=== PATIENT | female | born 1955 | race African-American/Black ===

== ENCOUNTER 2017-04-02 12:46 | Emergency (ER) | payer OTHER ==
[~2017-04-02] VITALS: Ht 157.5 cm; Wt 59.8 kg
[~2017-04-02 12:46] MED LIST: AUGM875T3 PO; CHLO.12%30 SWISH-SPIT; D 50CAP2 PO; EXCETAB PO; FLUT50SP EACH NARE; FLUV20CA3 PO; FURO1TAB62 PO; HYDR-3516 PO; IBUP-232 PO; LIDO1PAD52 TOPICAL
[2017-04-02 12:49] VITALS: BP 149/80; PULSE 78; RESP 16; TEMP 98.5; O2SAT 97
--- NOTE | 2017-04-02 13:17 | PD ---
HPI Chief Complaint: Hip Injury Time Seen by Provider: 13:00 Travel History International Travel<30 days: No Contact w/Intl Traveler<30days: No Traveled to known affect area: No History of Present Illness HPI This patient complains of left hip pain from fall. Duration 1 hour.The patient was seen and examined in the presence of the nurse. Severity is moderate. She has chronic gait problems from neuropathy and polio. She is supposed to be using a cane but wasn't using at the time she fell in her house and landed on tile on her left hip. Did not strike her head. No alleviating factors. Symptoms exacerbated by her gait problems PFSH Past Medical History Hx Anticoagulant Therapy: No Arthritis: Yes (DJD back, bilat knees) Cardiovascular Problems: Yes (HTN, CHOL) High Cholesterol: Yes Diabetes: No Diminished Hearing: No Fibromyalgia: Yes Headaches: Yes Hypertension: Yes Musculoskeletal: Yes (HX POLOIO;DDD) Respiratory: Yes Immunizations Current: Yes ?: Not Menopausal: Yes Past Surgical History Hysterectomy: Yes Social History Alcohol Use: No Tobacco Use: No (2012 STOPPED smoked 1 pack every week) Substance Use: No Allergies-Medications (Allergen,Severity, Reaction): Coded Allergies: No Known Allergies (Verified Allergy, Unknown, 04/02/17) Reported Meds & Prescriptions Reported Meds & Active Scripts Active Fluvastatin (Fluvastatin Sodium) 20 Mg Cap 20 Mg PO HS D3 Maximum Strength (Cholecalciferol) 5,000 Unit Cap 5,000 Units PO DAILY Lidocaine Patch 12 HR (Lidocaine) 5 % Patch 1 Patch TOPICAL DAILY PRN Remove patch after 12 hours Lasix (Furosemide) 20 Mg Tab 20 Mg PO DAILY PRN Fluticasone Nasal [place] 50 Mcg/Act Naspr 100 Mcg EACH NARE BID 50 mcg/spray Chlorhexidine Gluconate (Mouth) Liq (Chlorhexidine Gluconate) 0.12% Soln 15 Ml SWISH-SPIT BID Reported [BP med] 1 Tab PO DAILY Senna-Tabs (Sennosides) 8.6 Mg Tab 8.6 Mg PO DAILY Ibuprofen 600 Mg Tab 600 Mg PO TID Hydrocodone-Acetaminophen 5-325 mg Tab 1 Tab PO BID PRN Review of Systems General / Constitutional: No: Fever Eyes: No: Visual changes HENT: No: Headaches Cardiovascular: No: Chest Pain or Discomfort Respiratory: No: Shortness of Breath Gastrointestinal: No: Abdominal Pain Genitourinary: No: Dysuria Musculoskeletal: Positive: Limited ROM, Pain Skin: No Rash Neurologic: Positive: Ataxia, No: Weakness Psychiatric: No: Depression Endocrine: No: Polydipsia Hematologic/Lymphatic: No: Easy Bruising Physical Exam Narrative GENERAL: Well-nourished, well-developed patient in no apparent distress. SKIN: Focused skin assessment reveals no rash and nodules. Skin is Warm and dry. HEAD: Atraumatic. Normocephalic. EYES: Pupils equal and round. No scleral icterus. No injection or drainage. ENT: No nasal bleeding or discharge. Mucous membranes pink and moist. NECK: Trachea midline. No JVD. CARDIOVASCULAR: Regular rate and rhythm. No murmur appreciated. RESPIRATORY: No accessory muscle use. Clear to auscultation. Breath sounds equal bilaterally. GASTROINTESTINAL: Abdomen soft, non-tender, nondistended. Hepatic and splenic margins not palpable. MUSCULOSKELETAL: No obvious deformities. No clubbing. No cyanosis. No edema. Good range of motion left hip. No open wound or bruising NEUROLOGICAL: Awake and alert. No obvious cranial nerve deficits. Motor grossly within normal limits. Normal speech. PSYCHIATRIC: Appropriate mood and affect; insight and judgment normal. Data Data Last Documented VS Vital Signs Date Time Temp Pulse Resp B/P (MAP) Pulse Ox O2 Delivery O2 Flow Rate FiO2 04/02/17 12:49 98.5 78 16 149/80 (103) 97 Orders Orders Hip, Lat Only W Ap Pelvis (04/02/17 ) MDM Medical Decision Making Medical Screen Exam Complete: Yes Emergency Medical Condition: Yes Medical Record Reviewed: Yes Differential Diagnosis Hip fracture, hip contusion, hip dislocation Narrative Course I have reviewed the patient's electronic medical record. I reviewed her left hip x-ray which is negative I reviewed her pelvis x-ray which is negative I recommended walker use and daughter says she will get one. Has a contusion but stable for outpatient follow-up Diagnosis Primary Impression: Contusion of left hip Qualified Codes: S70.02XA - Contusion of left hip, initial encounter Additional Instructions: The patient was advised to follow up with their physician and return if they worsen. Use walker Med/Other Pt SpecificInfo: Other Disposition: 01 DISCHARGE HOME Condition: Stable Seng Li MD Apr 02, 2017 13:17
[2017-04-02] MEDS ORDERED: SENN8.6T36 PO (13:46)
[2017-04-02] MEDS ORDERED: BP med PO (13:46)
--- NOTE | 2017-04-02 14:04 | RADRPT ---
EXAM DATE/TIME: 04/02/2017 13:49 [facility] COMPARISON: No previous studies available for comparison. INDICATIONS : Left hip pain after falling today. MEDICAL HISTORY : Hypertension. SURGICAL HISTORY : None. ENCOUNTER: Initial ACUITY: 1 day PAIN SCORE: 10/10 LOCATION: Left head of femur. FINDINGS: A lateral view of the left hip with AP pelvis was obtained. No definite fractures, dislocations, lyt ic or sclerotic lesions are seen. The joint space is well maintained. The bones appear osteopenic. CONCLUSION: No acute disease. Ruben Cueva MD on April 02, 2017 at 14:01 Board Certified Radiologist. This report was verified electronically.
== END 2017-04-02 14:54 | disposition home or self-care (01) ==
LOC: PHED 12:46
DX: S70.02XA Contusion of left hip, initial encounter (principal); R27.0 Ataxia, unspecified; I10 Essential (primary) hypertension; A80.9 Acute poliomyelitis, unspecified; G62.9 Polyneuropathy, unspecified; E78.00 Pure hypercholesterolemia, unspecified; Z87.39 Personal history of other diseases of the musculoskeletal system and connective tissue; W18.39XA Other fall on same level, initial encounter; Y92.009 Unspecified place in unspecified non-institutional (private) residence as the place of occurrence of the external cause
CPT/HCPCS: 73501; 99283

== ENCOUNTER 2017-05-10 15:22 | Inpatient (IN) | payer OTHER, MEDICAID, MEDICARE ==
[~2017-05-10] VITALS: Ht 157.5 cm; Wt 57.2 kg
[2017-05-10] VITALS (10 sets, daily range): BP systolic 81–164; BP diastolic 57–88; PULSE 66–109; RESP 16–20; TEMP 97.8–98.8; O2SAT 97–100
[~2017-05-10 15:22] MED LIST changes: -AUGM875T3 PO; +BP med PO; -EXCETAB PO; +SENN8.6T36 PO
[2017-05-10] MEDS ORDERED: SODIUM CHLORID 0.9% 500 ML INJ 500 ML IV ONE ×2 (15:45→17:15)
--- NOTE | 2017-05-10 15:57 | PD ---
HPI Chief Complaint: low blood pressure Time Seen by Provider: 15:32 Travel History International Travel<30 days: No Contact w/Intl Traveler<30days: No Traveled to known affect area: No History of Present Illness HPI This 61-year-old female says she had low blood pressure at home today. She has a history of hypertension and is on lisinopril. She says she also takes some eyedrops which tends to lower her blood pressure. She says that today she was feeling lightheaded and short of breath. She checked her blood pressure at home and was in the 70s. She does not have any chest pain. She has not had any fever or chills. She feels a bit better now. She has a history of occipital neuralgia and gets injections in the back of her head periodically. He would not neurologist gave her a new medication 2 days ago which she says made her very jittery and which she would not take anymore. They've called the pharmacy and the medicine was Topamax She believes that that is what has triggered her illness. She denies any history of heart disease. She is having her usual headache now PFSH Past Medical History Hx Anticoagulant Therapy: No Arthritis: Yes (DJD back, bilat knees) Cardiovascular Problems: Yes (HTN, CHOL) High Cholesterol: Yes Diabetes: No Diminished Hearing: No Fibromyalgia: Yes Headaches: Yes Hypertension: Yes Musculoskeletal: Yes (HX POLOIO;DDD) Respiratory: Yes Immunizations Current: Yes Menopausal: Yes Past Surgical History Hysterectomy: Yes Social History Alcohol Use: No Tobacco Use: No (2012 STOPPED smoked 1 pack every week) Substance Use: No Allergies-Medications (Allergen,Severity, Reaction): Coded Allergies: No Known Allergies (Verified Allergy, Unknown, 05/10/17) Reported Meds & Prescriptions Reported Meds & Active Scripts Active Fluvastatin (Fluvastatin Sodium) 20 Mg Cap 20 Mg PO HS D3 Maximum Strength (Cholecalciferol) 5,000 Unit Cap 5,000 Units PO DAILY Lidocaine Patch 12 HR (Lidocaine) 5 % Patch 1 Patch TOPICAL DAILY PRN Remove patch after 12 hours Lasix (Furosemide) 20 Mg Tab 20 Mg PO DAILY PRN Fluticasone Nasal [place] 50 Mcg/Act Naspr 100 Mcg EACH NARE BID 50 mcg/spray Chlorhexidine Gluconate (Mouth) Liq (Chlorhexidine Gluconate) 0.12% Soln 15 Ml SWISH-SPIT BID Reported [BP med] 1 Tab PO DAILY Senna-Tabs (Sennosides) 8.6 Mg Tab 8.6 Mg PO DAILY Ibuprofen 600 Mg Tab 600 Mg PO TID Hydrocodone-Acetaminophen 5-325 mg Tab 1 Tab PO BID PRN Review of Systems General / Constitutional: No: Fever, Chills Eyes: No: Diploplia HENT: Positive: Headaches Cardiovascular: No: Chest Pain or Discomfort, Palpitations Respiratory: No: Cough, Shortness of Breath Gastrointestinal: No: Nausea, Vomiting Genitourinary: No: Urgency, Frequency Musculoskeletal: No: Myalgias Skin: No Rash Neurologic: Positive: Weakness Endocrine: No: Heat Intolerance, Cold Intolerance Hematologic/Lymphatic: No: Easy Bruising Physical Exam Narrative GENERAL: Well-developed female SKIN: Focused skin assessment warm/dry. HEAD: Atraumatic. Normocephalic. EYES: Pupils equal and round. No scleral icterus. No injection or drainage. ENT: No nasal bleeding or discharge. Mucous membranes pink and moist. NECK: Trachea midline. No JVD. CARDIOVASCULAR: Regular rate and rhythm. No murmur appreciated. RESPIRATORY: No accessory muscle use. Clear to auscultation. Breath sounds equal bilaterally. GASTROINTESTINAL: Abdomen soft, non-tender, nondistended. Hepatic and splenic margins not palpable. MUSCULOSKELETAL: No obvious deformities. No clubbing. No cyanosis. No edema. NEUROLOGICAL: Awake and alert. No obvious cranial nerve deficits. Motor grossly within normal limits. Normal speech. PSYCHIATRIC: Appropriate mood and affect; insight and judgment normal. Data Data Last Documented VS Vital Signs Date Time Temp Pulse Resp B/P (MAP) Pulse Ox O2 Delivery O2 Flow Rate FiO2 05/10/17 15:25 97.8 109 16 137/78 (97) 97 Orders Orders Electrocardiogram (05/10/17 15:45) Complete Blood Count With Diff (05/10/17 15:45) Comprehensive Metabolic Panel (05/10/17 15:45) Troponin I (05/10/17 15:45) Urinalysis - C+S If Indicated (05/10/17 15:45) D-Dimer (05/10/17 15:45) Magnesium (Mg) (05/10/17 15:45) Chest, Single Ap (05/10/17 15:45) Orthostatic Vital Signs (05/10/17 15:45) Sodium Chlorid 0.9% 500 Ml Inj (Ns 500 M (05/10/17 15:45) MDM Medical Decision Making Medical Screen Exam Complete: Yes Emergency Medical Condition: Yes Medical Record Reviewed: Yes Differential Diagnosis Differential includes dehydration, excessive medication ingestion, hypertension Narrative Course Pressure at this time is stable. She will be given some fluids and lab work is pending. Diagnosis Primary Impression: Hx of hypotension Greg Mendoza MD May 10, 2017 15:57
[2017-05-10 16:18] LABS: AUTOMATED NEUTROPHIL # 4.6 TH/MM3 (1.8-7.7); BASOPHIL # 0.1 TH/MM3 (0-0.2); BASOPHIL % 1.2 % (0.0-2.0); EOSINOPHIL # 0.1 TH/MM3 (0-0.4); EOSINOPHIL % 0.8 % (0.0-4.0); HEMATOCRIT 37.3 % (35.0-46.0); HEMOGLOBIN 11.9 GM/DL (11.6-15.3); LYMPH % 28.4 % (9.0-44.0); MEAN CELL VOLUME 91.3 FL (80.0-100.0); MEAN CORPUSCULAR HEMOGLOBIN 29.2 PG (27.0-34.0); MEAN PLATELET VOLUME 8.3 FL (7.0-11.0); MONOCYTE # 0.4 TH/MM3 (0-0.9); NEUT % 64.6 % (16.0-70.0); PLATELET COUNT 231 TH/MM3 (150-450); RED BLOOD COUNT 4.08 MIL/MM3 (4.00-5.30); RED CELL DISTRIBUTION WIDTH 13.7 % (11.6-17.2); WHITE BLOOD COUNT 7.2 TH/MM3 (4.0-11.0)
[2017-05-10 16:25] LABS: CHLORIDE 107 MEQ/L (98-107); SODIUM (NA) 138 MEQ/L (136-145)
[2017-05-10 16:28] LABS: ALBUMIN 3.7 GM/DL (3.4-5.0); CALCIUM 9.2 MG/DL (8.5-10.1); GLUCOSE,RANDOM 117 MG/DL (74-106)
[2017-05-10 16:29] LABS: BLOOD UREA NITROGEN 18 MG/DL (7-18)
[2017-05-10 16:31] LABS: ALT (GPT) 15 U/L (10-53); AST (GOT) 13 U/L (15-37)
[2017-05-10 16:32] LABS: GLOMERULAR FILTRATION RATE 68 ML/MIN (>89)
[2017-05-10] MEDS ORDERED: DORZ2SOL EACH EYE (16:32)
[2017-05-10 16:33] LABS: TOTAL BILIRUBIN ADULT 0.3 MG/DL (0.2-1.0)
[2017-05-10 16:34] LABS: ALKALINE PHOSPHATASE 70 U/L (45-117)
[2017-05-10 16:37] LABS: TROPONIN I LESS THAN 0.02 NG/ML (0.02-0.05)
--- NOTE | 2017-05-10 17:07 | PD ---
Data Data Last Documented VS Vital Signs Date Time Temp Pulse Resp B/P (MAP) Pulse Ox O2 Delivery O2 Flow Rate FiO2 05/10/17 17:39 66 16 119/76 (90) 100 Room Air 05/10/17 15:25 97.8 Orders Orders Electrocardiogram (05/10/17 15:45) Complete Blood Count With Diff (05/10/17 15:45) Comprehensive Metabolic Panel (05/10/17 15:45) Troponin I (05/10/17 15:45) Urinalysis - C+S If Indicated (05/10/17 15:45) D-Dimer (05/10/17 15:45) Magnesium (Mg) (05/10/17 15:45) Chest, Single Ap (05/10/17 15:45) Orthostatic Vital Signs (05/10/17 15:45) Sodium Chlorid 0.9% 500 Ml Inj (Ns 500 M (05/10/17 15:45) Ct Pulmonary Angiogram (05/10/17 17:04) Sodium Chlorid 0.9% 500 Ml Inj (Ns 500 M (05/10/17 17:15) Urine Culture (05/10/17 17:20) Ceftriaxone Inj (Rocephin Inj) (05/10/17 18:00) Iohexol 350 Inj (Omnipaque 350 Inj) (05/10/17 18:02) Heparin Inj (Heparin Inj) (05/10/17 18:32) Heparin Inj (Heparin Inj) (05/11/17 00:45) Heparin Inj (Heparin Inj) (05/11/17 00:45) Act Partial Throm Time (Ptt) (05/10/17 18:32) Prothrombin Time / Inr (Pt) (05/10/17 18:32) Cbc No Diff, Includes Plts (05/10/17 18:32) Cbc No Diff, Includes Plts (05/13/17 06:00) Act Partial Throm Time (Ptt) (05/11/17 01:32) Occult Blood (Hemoccult) Stool (05/10/17 18:32) Admit To Inpatient (05/10/17 ) Vital Signs (Adult) JUVENAL.Q4H (05/10/17 18:32) Activity Oob With Assistance (05/10/17 18:32) Starting Sheet Tank Operator / Telemetry JUVENAL.Q8H (05/10/17 18:32) Resp Oxygen Fidencio C Titrat 1-4 L (05/10/17 ) Inpatient Certification (05/10/17 ) Admit Order (Ed Use Only) (05/10/17 18:34) Labs Laboratory Tests Test 05/10/17 16:09 05/10/17 17:20 White Blood Count 7.2 TH/MM3 Red Blood Count 4.08 MIL/MM3 Hemoglobin 11.9 GM/DL Hematocrit 37.3 % Mean Corpuscular Volume 91.3 FL Mean Corpuscular Hemoglobin 29.2 PG Mean Corpuscular Hemoglobin Concent 32.0 % Red Cell Distribution Width 13.7 % Platelet Count 231 TH/MM3 Mean Platelet Volume 8.3 FL Neutrophils (%) (Auto) 64.6 % Lymphocytes (%) (Auto) 28.4 % Monocytes (%) (Auto) 5.0 % Eosinophils (%) (Auto) 0.8 % Basophils (%) (Auto) 1.2 % Neutrophils # (Auto) 4.6 TH/MM3 Lymphocytes # (Auto) 2.0 TH/MM3 Monocytes # (Auto) 0.4 TH/MM3 Eosinophils # (Auto) 0.1 TH/MM3 Basophils # (Auto) 0.1 TH/MM3 CBC Comment DIFF FINAL Differential Comment D-Dimer Quantitative (PE/DVT) 10.83 MG/L FEU Blood Urea Nitrogen 18 MG/DL Creatinine 1.00 MG/DL Random Glucose 117 MG/DL Total Protein 7.0 GM/DL Albumin 3.7 GM/DL Calcium Level 9.2 MG/DL Magnesium Level 2.0 MG/DL Alkaline Phosphatase 70 U/L Aspartate Amino Transf (AST/SGOT) 13 U/L Alanine Aminotransferase (ALT/SGPT) 15 U/L Total Bilirubin 0.3 MG/DL Sodium Level 138 MEQ/L Potassium Level 3.5 MEQ/L Chloride Level 107 MEQ/L Carbon Dioxide Level 25.0 MEQ/L Anion Gap 6 MEQ/L Estimat Glomerular Filtration Rate 68 ML/MIN Troponin I LESS THAN 0.02 NG/ML Urine Collection Type CLEAN CATCH Urine Color YELLOW Urine Turbidity CLOUDY Urine pH 6.0 Urine Specific [place] 1.022 Urine Protein NEG mg/dL Urine Glucose (UA) NEG mg/dL Urine Ketones NEG mg/dL Urine Occult Blood NEG Urine Nitrite NEG Urine Bilirubin NEG Urine Leukocyte Esterase NEG Urine Squamous Epithelial Cells 6-8 /hpf Urine Bacteria MANY /hpf Urine Hyaline Casts 0-2 /lpf Microscopic Urinalysis Comment CULTURE INDICATED MDM Supervised Visit with BAUDILIO: No Narrative Course The patient was initially evaluated by the previous provider and sent out to me at the beginning of my shift pending labs and disposition. See his note for further details. Briefly this is a 61-year-old female with history of hypertension here for evaluation of an episode of lightheadedness and when she checked her blood pressure at home it was 70 systolic. Upon arrival to the emergency department she is normotensive, however she does have orthostatic hypotension. On my assessment the patient is resting comfortably. She denies any physical complaints. No chest pain or dyspnea. No abdominal pain. No headache. No paresthesias or motor deficits. No history of DVT or PE. CBC is unremarkable. CMP is unremarkable. Cardiac enzymes are negative. D-dimer is 10.83. Chest x-ray: Because of elevated d-dimer, CT pulmonary angiogram ordered to rule out PE. CT pulmonary angiogram: CONCLUSION: Bilateral large pulmonary emboli, lower lobe predominant. Patient was made aware of all findings per she is resting comfortably and remains hemodynamically stable. She will be started on heparin drip after heparin bolus. Case discussed with hospitalist Dr. Crowder who prefers that the patient be admitted to the main hospital ICU under the hospitalist service. The patient was made aware of this plan. Diagnosis Primary Impression: Pulmonary embolism Qualified Codes: I26.99 - Other pulmonary embolism without acute cor pulmonale Admitting Information Admitting Physician Requests: Admit Sammy Zarate MD May 10, 2017 17:07
--- NOTE | 2017-05-10 17:26 | RADRPT ---
EXAM DATE/TIME: 05/10/2017 16:04 [facility] COMPARISON: CHEST SINGLE AP, January 08, 2015, 16:25. INDICATIONS : Shortness of breath for two days, MEDICAL HISTORY : Hypertension. Smoker. SURGICAL HISTORY : None. ENCOUNTER: Initial ACUITY: 2 days PAIN SCORE: 0/10 LOCATION: Bilateral chest FINDINGS: A single view of the chest demonstrates the lungs to be symmetrically hyperinflated with no acute inf iltrate. Heart size is normal. Dextroscoliosis of the dorsal spine. Osseous structures are intact. CONCLUSION: Hyperinflation with no acute infiltrate. Beto Zuñiga MD on May 10, 2017 at 17:13 Board Certified Radiologist. This report was verified electronically.
[2017-05-10 17:44] LABS: BILIRUBIN, URINE NEG (NEG); BLOOD, URINE NEG (NEG); GLUCOSE,URINE NEG (NEG); KETONE, URINE NEG (NEG); NITRITE,URINE NEG (NEG); URINE LEUKOCYTE ESTERASE NEG (NEG)
[2017-05-10 17:46] LABS: URINE COLOR YELLOW (YELLW/STRAW)
[2017-05-10 17:51] LABS: BACTERIA, URINE MANY /hpf; HYALINE CAST, URINE 0-2 /lpf (RARE)
[2017-05-10] MEDS ORDERED: cefTRIAXone INJ 1,000 MG in SODIUM CHLORIDE 0.9% INJ 100 ML IV ONE (18:00)
[2017-05-10] MEDS ORDERED: IOHEXOL 350 MG/ML 10 ML VIAL (for RAD DIAG) IVCONTRAST ONE (18:02)
--- NOTE | 2017-05-10 18:08 | RADRPT ---
EXAM DATE/TIME: 05/10/2017 17:52 [facility] COMPARISON: No previous studies available for comparison. INDICATIONS : Low blood pressure. Elevated D-dimer = 10.83 IV CONTRAST: 75 cc Omnipaque 350 (iohexol) IV RADIATION DOSE: 7.98 CTDIvol (mGy) MEDICAL HISTORY : Polio. SURGICAL HISTORY : Hysterectomy. ENCOUNTER: Initial ACUITY: 1 day PAIN SCALE: 0/10 LOCATION: chest TECHNIQUE: Volumetric scanning of the chest was performed using a pulmonary embolism protocol MIP images were re constructed. Using automated exposure control and adjustment of the mA and/or kV according to patien t size, radiation dose was kept as low as reasonably achievable to obtain optimal diagnostic quality images. DICOM format image data is available electronically for review and comparison. Follow-up recommendations for detected pulmonary nodules are based at a minimum on nodule size and pa tient risk factors according to Fleischner Society Guidelines. FINDINGS: PULMONARY ARTERIES: Large pulmonary emboli are seen of both lower lobes. Small pulmonary embolus of the right upper lobe. Right middle lobe and left upper lobe are uninvolved. LUNGS: There is no consolidation or pneumothorax . No concerning pulmonary nodule is visualized. PLEURAE: There is no pleural thickening or pleural effusion. MEDIASTINUM: There is good visualization of the great vessels of the middle mediastinum. No evidence of mediastin al or hilar adenopathy/mass. MUSCULOSKELETAL: Within normal limits for patient age. MISCELLANEOUS: The visualized upper abdominal organs demonstrate no acute abnormality. CONCLUSION: Bilateral large pulmonary emboli, lower lobe predominant. Ruben Schultz MD on May 10, 2017 at 18:04 Board Certified Radiologist. This report was verified electronically.
--- NOTE | 2017-05-10 18:31 | HHI.HP ---
HPI Service [facility] Primary Care Physician Paco Iyer MD Admission Diagnosis Diagnoses: Chief Complaint: lightheaded Travel History International Travel<30 Days: No Contact w/Intl Traveler <30 Da: No Traveled to Known Affected Are: No History of Present Illness 61-year-old black female being admitted for multiple pulmonary emboli. Patient was in her usual state of health until about 2 nights ago when she began experiencing some lightheadedness. She thought this was attributes to her taking her one-time dose of Topamax that night for her occipital neuralgia. However her lightheadedness persisted throughout the next morning and all day yesterday and today. She checked her blood pressure at home and noted that the systolic was in the 70s and thus decided come to emergency room. She did have some transient orthostatic low blood pressures in the 80s systolic but otherwise would return to over 100. D-dimer was significantly elevated, CT pulmonary angiogram showed bilateral pulmonary emboli in both lower lobes as well as a third embolus in the right upper lobe. Patient reports that she has been lying in bed for the last 2 days due to her lightheadedness and has not moved around much. States that she has intermittent occasional lower extremity edema that responds well to Lasix. Patient's past medical history includes having polio as a child and is having residual weakness ever since. She also has chronic low back pain secondary to an accident at work. Uses a cane to walk at baseline. She says she stopped smoking 6 years ago and had only smoked for a period of about 5-6 years. family history includes that her brother had lung cancer. Review of Systems Except as stated in HPI: all other systems reviewed are Neg Past Family Social History Past Medical History occipital neuralgia polio unsteady gait Allergies: Coded Allergies: No Known Allergies (Verified Allergy, Unknown, 05/10/17) Physical Exam Vital Signs Vital Signs Date Time Temp Pulse Resp B/P (MAP) Pulse Ox O2 Delivery O2 Flow Rate FiO2 05/10/17 17:39 66 16 119/76 (90) 100 Room Air 05/10/17 17:13 78 16 100/60 (73) 99 Room Air 05/10/17 16:45 72 16 102/71 (81) 100 Room Air 05/10/17 16:20 72 18 101/68 (79) 85 18 98/70 (79) 116 18 81/57 (65) 05/10/17 15:50 99 05/10/17 15:25 97.8 109 16 137/78 (97) 97 Physical Exam VS: afebrile GENERAL: NAD, awake, lying in bed SKIN: Warm and dry. EYES: No scleral icterus. No injection or drainage. ENT: No nasal bleeding or discharge. Mucous membranes pink and moist. CARDIOVASCULAR: Regular rate and rhythm. no murmurs RESPIRATORY: No accessory muscle use. Clear to auscultation. Breath sounds equal bilaterally. GASTROINTESTINAL: Abdomen soft, non-tender, nondistended. Extremities: No clubbing, cyanosis, or edema. No obvious deformities. MUSCULOSKELETAL: decreased lower extremity BL muscle bulk and tone for age and habitus NEUROLOGICAL: Awake and alert. No obvious cranial nerve deficits. No facial droop nor slurred speech noted. PSYCHIATRIC: Appropriate mood and affect; insight and judgment normal. Laboratory Laboratory Tests Test 05/10/17 16:09 05/10/17 17:20 White Blood Count 7.2 Red Blood Count 4.08 Hemoglobin 11.9 Hematocrit 37.3 Mean Corpuscular Volume 91.3 Mean Corpuscular Hemoglobin 29.2 Mean Corpuscular Hemoglobin Concent 32.0 Red Cell Distribution Width 13.7 Platelet Count 231 Mean Platelet Volume 8.3 Neutrophils (%) (Auto) 64.6 Lymphocytes (%) (Auto) 28.4 Monocytes (%) (Auto) 5.0 Eosinophils (%) (Auto) 0.8 Basophils (%) (Auto) 1.2 Neutrophils # (Auto) 4.6 Lymphocytes # (Auto) 2.0 Monocytes # (Auto) 0.4 Eosinophils # (Auto) 0.1 Basophils # (Auto) 0.1 CBC Comment DIFF FINAL Differential Comment D-Dimer Quantitative (PE/DVT) 10.83 Blood Urea Nitrogen 18 Creatinine 1.00 Random Glucose 117 Total Protein 7.0 Albumin 3.7 Calcium Level 9.2 Magnesium Level 2.0 Alkaline Phosphatase 70 Aspartate Amino Transf (AST/SGOT) 13 Alanine Aminotransferase (ALT/SGPT) 15 Total Bilirubin 0.3 Sodium Level 138 Potassium Level 3.5 Chloride Level 107 Carbon Dioxide Level 25.0 Anion Gap 6 Estimat Glomerular Filtration Rate 68 Troponin I LESS THAN 0.02 Urine Collection Type CLEAN CATCH Urine Color YELLOW Urine Turbidity CLOUDY Urine pH 6.0 Urine Specific [place] 1.022 Urine Protein NEG Urine Glucose (UA) NEG Urine Ketones NEG Urine Occult Blood NEG Urine Nitrite NEG Urine Bilirubin NEG Urine Leukocyte Esterase NEG Urine Squamous Epithelial Cells 6-8 Urine Bacteria MANY Urine Hyaline Casts 0-2 Microscopic Urinalysis Comment CULTURE INDICATED Date/Time Source Procedure Growth Status 05/10/17 17:20 Urine Clean Catch Urine Culture Pending Received Result Diagram: 05/10/17 1609 05/10/17 [address] Angiography 05/10/17 1704 Signed Impressions: Service Date/Time: May 17:52 - CONCLUSION: Bilateral large pulmonary emboli, lower lobe predominant. Ruben Schultz MD Chest X-Ray 05/10/17 1545 Signed Impressions: Service Date/Time: May 16:04 - CONCLUSION: Hyperinflation with no acute infiltrate. Beto Zuñiga MD Caprini VTE Risk Assessment Caprini VTE Risk Assessment: Mod/High Risk (score >= 2) Caprini Risk Assessment Model Point Value = 1 Point Value = 2 Point Value = 3 Point Value = 5 Age 41-60 Minor surgery BMI > 25 kg/m2 Swollen legs Varicose veins or History of unexplained or recurrent spontaneous Oral contraceptives or hormone replacement Sepsis (< 1 month) Serious lung disease, including pneumonia (< 1 month) Abnormal pulmonary function Acute myocardial infarction Congestive heart failure (< 1 month) History of inflammatory bowel disease Medical patient at bed rest Age 61-74 Arthroscopic surgery Major open surgery (> 45 min) Laparoscopic surgery (> 45 min) Malignancy Confined to bed (> 72 hours) Immobilizing plaster cast Central venous access Age >= 75 History of VTE Family history of VTE Factor V Leiden Prothrombin [id number] Lupus anticoagulant Anticardiolipin antibodies Elevated serum homocysteine Heparin-induced thrombocytopenia Other congenital or acquired thrombophilia Stroke (< 1 month) Elective arthroplasty Hip, pelvis, or leg fracture Acute spinal cord injury (< 1 month) Prophylaxis Regimen Total Risk Factor Score Risk Level Prophylaxis Regimen 0-1 Low Early ambulation 2 Moderate Order ONE of the following: *Sequential Compression Device (SCD) *Heparin 5000 units SQ BID 3-4 Higher Order ONE of the following medications: *Heparin 5000 units SQ TID *Enoxaparin/Lovenox 40 mg SQ daily (WT < 150 kg, CrCl > 30 mL/min) *Enoxaparin/Lovenox 30 mg SQ daily (WT < 150 kg, CrCl > 10-29 mL/min) *Enoxaparin/Lovenox 30 mg SQ BID (WT < 150 kg, CrCl > 30 mL/min) AND/OR *Sequential Compression Device (SCD) 5 or more Highest Order ONE of the following medications: *Heparin 5000 units SQ TID (Preferred with Epidurals) *Enoxaparin/Lovenox 40 mg SQ daily (WT < 150 kg, CrCl > 30 mL/min) *Enoxaparin/Lovenox 30 mg SQ daily (WT < 150 kg, CrCl > 10-29 mL/min) *Enoxaparin/Lovenox 30 mg SQ BID (WT < 150 kg, CrCl > 30 mL/min) AND *Sequential Compression Device (SCD) Assessment and Plan Assessment and Plan 61-year-old white female being admitted to the intensive care unit for bilateral pulmonary emboli with borderline blood pressures. - [address] on [address] angiogram, continue heparin drip protocol, discussed with emergency room doctor to admit to 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 - Etiology right now includes prolonged bedrest at home, CT angiogram shows no commentary regarding pulmonary masses Transient hypotension - Multifactorial but of most concern are the pulmonary emboli; normal saline bolus followed by IV fluids, holding home blood pressure medications - Ordering echocardiogram for a.m. - No signs of sepsis at this time. Monitor intake and output. No need for abx, UA is contaminated. Physician Certification 2 Midnight Certification Type: Admission for Inpatient Services Order for Inpatient Services The services are ordered in accordance with Medicare regulations or non- Medicare payer requirements, as applicable. In the case of services not specified as inpatient-only, they are appropriately provided as inpatient services in accordance with the 2-midnight benchmark. Estimated LOS (days): 2 2 days is the estimated time the patient will need to remain in the hospital, assuming treatment plan goals are met and no additional complications. Post-Hospital Plan: Home Mika Crowder MD May 10, 2017 18:31
[2017-05-10] MEDS ORDERED: HEPARIN - 10,000 UNITS/ML IV ADDITIVE IV PUSH STA (18:32)
[2017-05-10] MEDS ORDERED: FUROSEMIDE 20 MG TAB PO PRN (19:00)
[2017-05-10 19:02] LABS: PROTHROMBIN TIME - PATIENT 10.5 SEC (9.8-11.6)
[2017-05-10] MEDS ORDERED: HEPARIN SODIUM - IV 10,000 UNITS/10 ML VIAL IV STA (19:29)
[2017-05-10] MEDS: HEPARIN-D5W 25,000 U/250 ML 250 ML IV PRN (19:47)
[2017-05-10] MEDS ORDERED: CHLORHEXIDINE GLUCONATE 2 % 1 PACK (2 CLOTHS)(extra cloths) TOPICAL PRN (22:30)
[2017-05-10] MEDS: CHLORHEXIDINE GLUCONATE 2 % 1 PACK (2 CLOTHS)(taper/protocol) TOPICAL SCH (22:51)
[2017-05-10] MEDS: PRAVASTATIN SOD 10 MG TAB PO SCH (22:51)
[2017-05-11] VITALS (13 sets, daily range): BP systolic 112–149; BP diastolic 67–84; PULSE 60–81; RESP 13–16; TEMP 96.7–98.7; O2SAT 96–100
[2017-05-11] MEDS ORDERED: HEPARIN SODIUM - IV 10,000 UNITS/10 ML VIAL IV PUSH PRN (00:45)
[2017-05-11] MEDS ORDERED: HEPARIN - 10,000 UNITS/ML IV ADDITIVE IV PUSH PRN (00:45)
[2017-05-11] MEDS: DORZOLAMIDE 2% OPTH SOLN 200 DROP/10 ML BTLO EACH EYE SCH (09:00)
[2017-05-11] MEDS: CHOLECALCIFEROL (VIT D3) 5000 UNIT CAP PO SCH (09:36)
--- NOTE | 2017-05-11 14:18 | HHI.PR ---
Subjective Remarks Patient seen this morning around 9 AM. Reports generalized fatigue. She is not sure she can go home today. She denies any chest pain. She is requesting Tylenol for her chronic headaches. Objective Vital Signs Date Time Temp Pulse Resp B/P (MAP) Pulse Ox O2 Delivery O2 Flow Rate FiO2 05/11/17 12:00 96.7 66 16 129/81 (97) 96 05/11/17 10:00 70 05/11/17 08:00 65 05/11/17 08:00 98.7 73 16 140/72 (94) 100 05/11/17 07:59 100 05/11/17 07:00 77 05/11/17 06:00 65 05/11/17 04:00 63 05/11/17 04:00 98.5 63 13 126/75 (92) 100 05/11/17 02:00 64 05/11/17 00:00 98.6 60 13 149/84 (105) 100 05/11/17 00:00 60 05/10/17 23:00 66 19 153/66 (95) 100 05/10/17 23:00 66 05/10/17 22:40 100 21 05/10/17 22:23 98.8 74 20 164/84 (110) 100 05/10/17 21:26 76 18 144/88 (106) 100 Room Air 05/10/17 21:26 76 18 144/88 (106) 98 05/10/17 19:07 75 16 161/86 (111) 99 Room Air 05/10/17 17:39 66 16 119/76 (90) 100 Room Air 05/10/17 17:13 78 16 100/60 (73) 99 Room Air 05/10/17 16:45 72 16 102/71 (81) 100 Room Air 05/10/17 16:20 72 18 101/68 (79) 85 18 98/70 (79) 116 18 81/57 (65) 05/10/17 15:50 99 05/10/17 15:25 97.8 109 16 137/78 (97) 97 I/O 05/10/17 05/10/17 05/10/17 05/11/17 05/11/17 05/11/17 07:00 15:00 23:00 07:00 15:00 23:00 Intake Total 1100 ml 0 ml Balance 1100 ml 0 ml Intake Oral 0 ml IV Total 1100 ml # Voids 4 # Bowel Movements 0 Result Diagram: 05/10/17 1609 05/10/17 1609 Objective Remarks GENERAL: Patient sitting up in bed. Appears fatigued. SKIN: Warm and dry. HEAD: Normocephalic. EYES: No scleral icterus. No injection or drainage. NECK: Supple, trachea midline. No JVD. CARDIOVASCULAR: Regular rate and rhythm without murmurs, gallops, or rubs. RESPIRATORY: Breath sounds equal bilaterally. No accessory muscle use. GASTROINTESTINAL: Abdomen soft, non-tender, nondistended. MUSCULOSKELETAL: No cyanosis, or edema. BACK: Nontender without obvious deformity. No CVA tenderness. A/P Assessment and Plan 61-year-old white female being admitted to the intensive care unit for bilateral pulmonary emboli with borderline blood pressures. 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 - Etiology right now includes prolonged bedrest at home, CT angiogram shows no commentary regarding pulmonary masses = Continue on heparin drip. We'll start warfarin. Discussed pros and cons of warfarin versus novel anticoagulant, and patient is not sure at this time. We' ll start on warfarin today, but we'll need to make decision about novel anticoagulant tomorrow. Also discharge home tomorrow if stable and cleared by PT to go home. //Transient hypotension - Multifactorial but of most concern are the pulmonary emboli; normal saline bolus followed by IV fluids, holding home blood pressure medications - Ordering echocardiogram for a.m. - No signs of sepsis at this time. Monitor intake and output. = Blood pressure, vitals acceptable currently. Awaiting PT evaluation //Chronic cervicogenic headaches. Continue Tylenol. //30 UA. Squamous cells and bacteria. No nitrite or signs of infected urine. Status post 1 dose of ceftriaxone. Discontinue antibiotics. No need for abx, UA is contaminated. Discharge Planning Pending PT consult. Could discharge home tomorrow on novel anticoagulant versus warfarin with Lovenox bridge. patient seems to be favoring novel anticoagulant Vinayak Stapleton MD May 11, 2017 14:18
[2017-05-11] MEDS ORDERED: ACETAMINOPHEN 500 MG CPLT PO ONE (14:30)
--- NOTE | 2017-05-11 14:44 | EKG ---
Date Performed: 05/10/2017 Time Performed: 16:11:48 PTAGE: 61 years EKG: Sinus rhythm Since previous tracing, no significant change noted NORMAL ECG PREVIOUS TRACING : 01/08/2015 16.48 DOCTOR: Penny Ames Interpretating Date/Time 05/11/2017 14:42:10
[2017-05-11] MEDS ORDERED: WARFARIN SOD 5 MG TAB PO ONE (16:00)
--- NOTE | 2017-05-11 18:55 | ECHRPT ---
Indication: HYPOTENSION CONCLUSIONS The left ventricular systolic function is normal with an estimated ejection fraction in the range of 60-65%. Trace mitral valve regurgitation. There is mild to moderate tricuspid valve regurgitation. BP: / HR: Rhythm: MEASUREMENTS (Male / Female) Normal Values Technical Quality:Good 2D ECHO LV Diastolic Diameter PLAX 3.8 cm 4.2 - 5.9 / 3.9 - 5.3 cm LV Systolic Diameter PLAX 2.8 cm IVS Diastolic Thickness 0.9 cm 0.6 - 1.0 / 0.6 - 0.9 cm LVPW Diastolic Thickness 1.0 cm 0.6 - 1.0 / 0.6 - 0.9 cm LV Relative Wall Thickness 0.5 RV Internal Dim ED PLAX 2.4 cm M-MODE Aortic Root Diameter MM 3.3 cm LA Systolic Diameter MM 2.8 cm LA Ao Ratio MM 0.8 AV Cusp Separation MM 1.7 cm DOPPLER Mitral E Point Velocity 69.4 cm/s Mitral A Point Velocity 64.9 cm/s Mitral E to A Ratio 1.1 LV E' Lateral Velocity 8.2 cm/s Mitral E to LV E' Lateral Ratio 8.5 TR Peak Velocity 290.0 cm/s TR Peak Gradient 33.6 mmHg Right Atrial Pressure 10.0 mmHg Pulmonary Artery Systolic Pressu 43.6 mmHg Right Ventricular Systolic Press 43.6 mmHg FINDINGS LEFT VENTRICLE The left ventricular systolic function is normal with an estimated ejection fraction in the range of 60-65%. Normal left ventricular size. Wall thickness is normal. RIGHT VENTRICLE Normal right ventricular size and systolic function. LEFT ATRIUM The left atrial size is normal. RIGHT ATRIUM The right atrial size is normal. ATRIAL SEPTUM Normal atrial septal thickness. AORTA The aortic root and proximal ascending aorta are not well visualized. MITRAL VALVE Structurally normal mitral valve. Trace mitral valve regurgitation. AORTIC VALVE Trileaflet aortic valve. No aortic valve stenosis or regurgitation. TRICUSPID VALVE Structurally normal tricuspid valve. There is mild to moderate tricuspid valve regurgitation. There is estimated mild pulmonary hypertension present (range 40-50 mmHg). PULMONARY VALVE No pulmonary valve regurgitation or stenosis. VESSELS The inferior vena cava is normal in size. PERICARDIUM There is no pericardial effusion. Paco Bailey DO (Electronically Signed) Final Date:11 May 2017 18:54
[2017-05-11] MEDS: PRAVASTATIN SOD 10 MG TAB PO SCH (19:38)
[2017-05-11] MEDS: ACETAMINOPHEN 325 MG TAB PO PRN (19:39)
[2017-05-11] MEDS ORDERED: CALCIUM CARBONATE 500 MG CHEWABLE TAB CHEW PRN (21:15)
[2017-05-11] MEDS: FAMOTIDINE 20 MG TAB PO SCH (21:27)
[2017-05-11] MEDS: HEPARIN-D5W 25,000 U/250 ML 250 ML IV PRN (21:35)
[2017-05-12] VITALS (12 sets, daily range): BP systolic 105–148; BP diastolic 67–93; PULSE 63–95; RESP 16–18; TEMP 96.2–97.7; O2SAT 92–100
[2017-05-12 02:11] LABS: INTERNATIONAL NORMALIZED RATIO 1.1 RATIO; PROTHROMBIN TIME - PATIENT 10.9 SEC (9.8-11.6)
[2017-05-12] MEDS: CHLORHEXIDINE GLUCONATE 2 % 1 PACK (2 CLOTHS)(taper/protocol) TOPICAL SCH (04:00)
[2017-05-12] MEDS: CHOLECALCIFEROL (VIT D3) 5000 UNIT CAP PO SCH (09:38)
[2017-05-12] MEDS: FAMOTIDINE 20 MG TAB PO SCH ×2 (09:39→21:38)
[2017-05-12] MEDS: DORZOLAMIDE 2% OPTH SOLN 200 DROP/10 ML BTLO EACH EYE SCH (11:32)
[2017-05-12] MEDS ORDERED: APIX5TAB PO (11:47)
--- NOTE | 2017-05-12 11:47 | HHI.DS ---
Discharge Summary Admission Date May 10, 2017 at 18:37 Admitting Diagnosis Brief History - From Admission 61-year-old black female being admitted for multiple pulmonary emboli. Patient was in her usual state of health until about 2 nights ago when she began experiencing some lightheadedness. She thought this was attributes to her taking her one-time dose of Topamax that night for her occipital neuralgia. However her lightheadedness persisted throughout the next morning and all day yesterday and today. She checked her blood pressure at home and noted that the systolic was in the 70s and thus decided come to emergency room. She did have some transient orthostatic low blood pressures in the 80s systolic but otherwise would return to over 100. D-dimer was significantly elevated, CT pulmonary angiogram showed bilateral pulmonary emboli in both lower lobes as well as a third embolus in the right upper lobe. Patient reports that she has been lying in bed for the last 2 days due to her lightheadedness and has not moved around much. States that she has intermittent occasional lower extremity edema that responds well to Lasix. Patient's past medical history includes having polio as a child and is having residual weakness ever since. She also has chronic low back pain secondary to an accident at work. Uses a cane to walk at baseline. She says she stopped smoking 6 years ago and had only smoked for a period of about 5-6 years. family history includes that her brother had lung cancer. CBC/BMP: 05/10/17 1609 05/10/17 1609 Significant Findings Laboratory Tests Test 05/10/17 16:08 05/10/17 16:09 05/10/17 17:20 05/10/17 22:19 D-Dimer Quantitative (PE/DVT) 10.83 MG/L FEU (0.00-0.50) Random Glucose 117 MG/DL (74-106) Aspartate Amino Transf (AST/SGOT) 13 U/L (15-37) Estimat Glomerular Filtration Rate 68 ML/MIN (>89) Troponin I LESS THAN 0.02 NG/ML Urine Turbidity CLOUDY (CLEAR) Urine Squamous Epithelial Cells 6-8 /hpf (0-5) Urine Bacteria MANY /hpf (NONE) Test 05/11/17 01:41 05/11/17 07:56 05/11/17 18:25 05/12/17 01:17 Activated Partial Thromboplast Time 97.6 SEC (24.3-30.1) 54.2 SEC (24.3-30.1) 32.2 SEC (24.3-30.1) 62.2 SEC (24.3-30.1) Test 05/12/17 06:27 Activated Partial Thromboplast Time 60.6 SEC (24.3-30.1) Pt Condition on Discharge: Stable Discharge Disposition: Discharge Home Discharge Instructions DIET: Follow Instructions for: Heart Healthy Diet Activities you can perform: Regular-No Restrictions Jaylene Kim MD May 12, 2017 11:47
--- NOTE | 2017-05-12 12:55 | HHI.PR ---
Subjective Remarks bed with some chest pain with deep inspiration. no sob., sattign well on room air. Discussed with the patient and the family at length regarding anticoagulation choices. They are indecisive at this time. Says she doesn't feel comfortable to go home today. Would consider eliquis at [place] tomorrow,. Discharge placed on hold Objective Vitals Vital Signs Date Time Temp Pulse Resp B/P (MAP) Pulse Ox O2 Delivery O2 Flow Rate FiO2 05/12/17 12:00 97.7 80 18 111/74 (86) 99 05/12/17 08:00 97.4 72 18 139/90 (106) 92 05/12/17 04:37 100 05/12/17 04:10 71 05/12/17 04:00 97.3 70 16 136/93 (107) 98 05/12/17 00:15 64 05/12/17 00:00 97.7 66 16 143/83 (103) 100 05/11/17 20:00 65 05/11/17 20:00 97.6 73 15 118/70 (86) 97 05/11/17 19:01 68 05/11/17 17:38 99 21 05/11/17 16:00 97.2 81 15 112/67 (82) 99 I/O 05/11/17 05/11/17 05/11/17 05/12/17 05/12/17 05/12/17 07:00 15:00 23:00 07:00 15:00 23:00 Intake Total 0 ml 240 ml 668 ml 69 ml Balance 0 ml 240 ml 668 ml 69 ml Intake Oral 0 ml 240 ml 480 ml IV Total 188 ml 69 ml # Voids 4 2 4 # Bowel Movements 0 0 Result Diagram: 05/10/17 1609 05/10/17 [address] Angiography 05/10/17 1704 Signed Impressions: Service Date/Time: May 17:52 - CONCLUSION: Bilateral large pulmonary emboli, lower lobe predominant. Ruben Schultz MD Chest X-Ray 05/10/17 1545 Signed Impressions: Service Date/Time: May 16:04 - CONCLUSION: Hyperinflation with no acute infiltrate. Beto Zuñiga MD Objective Remarks GENERAL: Patient sitting up in bed. Appears fatigued. CARDIOVASCULAR: Regular rate and rhythm without murmurs, gallops, or rubs. RESPIRATORY: Breath sounds equal bilaterally. No accessory muscle use. GASTROINTESTINAL: Abdomen soft, non-tender, nondistended. MUSCULOSKELETAL: No cyanosis, or edema. BACK: Nontender without obvious deformity. No CVA tenderness. A/P Assessment and Plan 61-year-old white female being admitted to the intensive care unit for bilateral pulmonary emboli with borderline blood pressures. 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. - Etiology right now includes prolonged bedrest at home, CT angiogram shows no commentary regarding pulmonary masses Continue on heparin drip. We'll start warfarin. Discussed pros and cons of warfarin versus novel anticoagulant, and patient is not sure at this time. On warfarin. Also discharge home tomorrow if stable and cleared by PT to go home. Change to eliquis at [place] Transient hypotension - Multifactorial but of most concern are the pulmonary emboli; normal saline bolus followed by IV fluids, holding home blood pressure medications - Ordering echocardiogram for a.m. - No signs of sepsis at this time. Monitor intake and output. = Blood pressure, vitals acceptable currently. Awaiting PT evaluation Chronic cervicogenic headaches. Continue Tylenol. UA. Squamous cells and bacteria. No nitrite or signs of infected urine. Status post 1 dose of ceftriaxone. Discontinue antibiotics. No need for abx, UA is contaminated. Discharge Planning Pending PT consult. Could discharge home tomorrow on novel anticoagulant versus warfarin with Lovenox bridge. patient seems to be favoring novel anticoagulant eliquis. prescription today discussed also with CM regarding DC meds eliquis Discussed at length with the patient,. nurse, family , CM Jaylene Kim MD May 12, 2017 12:55
[2017-05-12] MEDS ORDERED: WARFARIN SOD 5 MG TAB PO SCH (16:00)
[2017-05-12] MEDS: PRAVASTATIN SOD 10 MG TAB PO SCH (21:38)
[2017-05-12] MEDS: ACETAMINOPHEN 325 MG TAB PO PRN (21:39)
[2017-05-13] MEDS: CHLORHEXIDINE GLUCONATE 2 % 1 PACK (2 CLOTHS)(taper/protocol) TOPICAL SCH (02:37)
[2017-05-13 04:20] VITALS: BP 135/82; PULSE 87; RESP 17; TEMP 97.3; O2SAT 100
[2017-05-13] MEDS: HEPARIN-D5W 25,000 U/250 ML 250 ML IV PRN (05:03)
[2017-05-13 07:44] LABS: HEMATOCRIT 36.2 % (35.0-46.0); HEMOGLOBIN 12.1 GM/DL (11.6-15.3); MEAN CELL VOLUME 90.9 FL (80.0-100.0); MEAN CORPUSCULAR HEMOGLOBIN 30.4 PG (27.0-34.0); MEAN CORPUSCULAR HGB CONC 33.4 % (32.0-36.0); MEAN PLATELET VOLUME 8.1 FL (7.0-11.0); PLATELET COUNT 216 TH/MM3 (150-450); RED BLOOD COUNT 3.98 MIL/MM3 (4.00-5.30); RED CELL DISTRIBUTION WIDTH 14.3 % (11.6-17.2); WHITE BLOOD COUNT 5.8 TH/MM3 (4.0-11.0)
[2017-05-13 07:46] LABS: INTERNATIONAL NORMALIZED RATIO 1.1 RATIO; PROTHROMBIN TIME - PATIENT 11.4 SEC (9.8-11.6)
[2017-05-13 08:00] VITALS: BP 144/91; PULSE 73; PULSE 74; RESP 16; TEMP 97.6; O2SAT 100
[2017-05-13] MEDS: CHOLECALCIFEROL (VIT D3) 5000 UNIT CAP PO SCH (08:02)
[2017-05-13] MEDS: DORZOLAMIDE 2% OPTH SOLN 200 DROP/10 ML BTLO EACH EYE SCH (08:02)
[2017-05-13] MEDS: FAMOTIDINE 20 MG TAB PO SCH (08:02)
[2017-05-13 11:33] VITALS: PULSE 74
[2017-05-13 12:00] VITALS: BP 112/73; PULSE 87; PULSE 95; RESP 16; TEMP 97.4; O2SAT 100
[2017-05-13] MEDS ORDERED: TYLE325T PO (14:09)
[2017-05-13 16:00] VITALS: BP 114/79; PULSE 79; RESP 16; TEMP 97.3; O2SAT 100
[2017-05-13] MEDS ORDERED: APIXABAN 5 MG TABLET PO ONE (18:00)
--- NOTE | 2017-05-13 20:28 | HHI.DS ---
Discharge Summary Admission Date May 10, 2017 at 18:37 Discharge Date: May 13, 2017 Admitting Diagnosis pulmonary embolism (1) Pulmonary embolism ICD Code: I26.99 - Other pulmonary embolism without acute cor pulmonale Diagnosis: Principal Procedures Echo 05/11/2017 CONCLUSIONS The left ventricular systolic function is normal with an estimated ejection fraction in the range of 60-65%. Trace mitral valve regurgitation. There is mild to moderate tricuspid valve regurgitation. Brief History - From Admission 61-year-old black female being admitted for multiple pulmonary emboli. Patient was in her usual state of health until about 2 nights ago when she began experiencing some lightheadedness. She thought this was attributes to her taking her one-time dose of Topamax that night for her occipital neuralgia. However her lightheadedness persisted throughout the next morning and all day yesterday and today. She checked her blood pressure at home and noted that the systolic was in the 70s and thus decided come to emergency room. She did have some transient orthostatic low blood pressures in the 80s systolic but otherwise would return to over 100. D-dimer was significantly elevated, CT pulmonary angiogram showed bilateral pulmonary emboli in both lower lobes as well as a third embolus in the right upper lobe. Patient reports that she has been lying in bed for the last 2 days due to her lightheadedness and has not moved around much. States that she has intermittent occasional lower extremity edema that responds well to Lasix. Patient's past medical history includes having polio as a child and is having residual weakness ever since. She also has chronic low back pain secondary to an accident at work. Uses a cane to walk at baseline. She says she stopped smoking 6 years ago and had only smoked for a period of about 5-6 years. family history includes that her brother had lung cancer. CBC/BMP: 05/13/17 0620 05/10/17 1609 Significant Findings Laboratory Tests Test 05/10/17 22:19 05/11/17 01:41 05/11/17 07:56 05/11/17 18:25 Activated Partial Thromboplast Time 97.6 SEC (24.3-30.1) 54.2 SEC (24.3-30.1) 32.2 SEC (24.3-30.1) Test 05/12/17 01:17 05/12/17 06:27 05/13/17 06:20 Activated Partial Thromboplast Time 62.2 SEC (24.3-30.1) 60.6 SEC (24.3-30.1) 53.9 SEC (24.3-30.1) Red Blood Count 3.98 MIL/MM3 (4.00-5.30) Imaging Last Impressions CT Angiography 05/10/17 1704 Signed Impressions: Service Date/Time: May 17:52 - CONCLUSION: Bilateral large pulmonary emboli, lower lobe predominant. Ruben Schultz MD Chest X-Ray 05/10/17 1545 Signed Impressions: Service Date/Time: , May 10, 2017 16:04 - CONCLUSION: Hyperinflation with no acute infiltrate. Beto Zuñiga MD PE at Discharge GENERAL: Patient sitting up in bed. Appears fatigued. CARDIOVASCULAR: Regular rate and rhythm without murmurs, gallops, or rubs. RESPIRATORY: Breath sounds equal bilaterally. No accessory muscle use. GASTROINTESTINAL: Abdomen soft, non-tender, nondistended. MUSCULOSKELETAL: No cyanosis, or edema. BACK: Nontender without obvious deformity. No CVA tenderness. Pt update on day of discharge Patient is currently doing well. No CP, SOB, fever, chills. She is on room air. Hospital Course Ms. Enriquez is a 61 year old female who was admitted to the hospital due to pulmonary embolism. She has not been as active as she usually recently. Three days prior to this admission, she started to have dyspnea. Denies any recent surgery, recent long distance travel. She was on heparin drip after she was diagnosed with PE. After a lengthy discussion, we started patient on Apixaban 10mg BID X 7 days then 5mg BID. Patient will discuss with her PCP in future with regards to care home anti-coagulation. Since this is a provoked PE, I think 3 months of anti-coagulation would be adequate unless she has elevated d- dimer and/or DVT present at the end of 3 months of anti-coagulation. We went over risk and benefits of warfarin as well as apixaban. Patient verbalized understanding. She will given 10mg of Apixaban when heparin is stopped. She can start Apixaban 10mg BID starting 05/14/2017 then after 7 days she will continue 5mg BID. Pt Condition on Discharge: Stable Discharge Disposition: Discharge Home Discharge Time: > 30 minutes Discharge Instructions DIET: Follow Instructions for: Heart Healthy Diet Activities you can perform: Regular-No Restrictions Follow up Referrals: PCP Follow-up - 2-3 Days New Medications: Acetaminophen (Tylenol) 325 Mg Tab 650 MG PO Q6H PRN for pain, #90 TAB 0 Refills Apixaban (Eliquis) 5 Mg Tab 10 MG PO BID for Blood Clot Prevention, #14 TAB 0 Refills Apixaban (Eliquis) 5 Mg Tab 5 MG PO BID for Blood Clot Prevention, #60 TAB 0 Refills Continued Medications: Cholecalciferol (D3 Maximum Strength) 5,000 Unit Cap 5000 UNITS PO DAILY for Nutritional Supplement, #90 CAP 3 Refills Dorzolamide Opth Drops (Dorzolamide Opth Drops) 2% Soln 1 DROP EACH EYE DAILY for Glaucoma, #1 BOTTLE 0 Refills Fluticasone Nasal Riley (Fluticasone Nasal Riley) 50 Mcg/Act Naspr 100 MCG EACH NARE BID for Allergy Management, #1 BOTTLE 3 Refills 50 mcg/spray Fluvastatin (Fluvastatin) 20 Mg Cap 20 MG PO HS for Cholesterol Management, #90 CAP 0 Refills Furosemide (Lasix) 20 Mg Tab 20 MG PO DAILY PRN for swelling, #30 TAB 6 Refills Hydrocodone-Acetaminophen (Hydrocodone-Acetaminophen) 5-325 mg Tab 1 TAB PO BID PRN for PAIN, TAB 0 Refills Sennosides (Senna-Tabs) 8.6 Mg Tab 8.6 MG PO DAILY for Constipation, #30 TAB 0 Refills Discontinued Medications: Ibuprofen (Ibuprofen) 600 Mg Tab 600 MG PO TID for Arthritis Pain, TAB 0 Refills Helen Barba DO May 13, 2017 20:27
== END 2017-05-13 18:44 | disposition home or self-care (01) | DRG 176 ==
LOC: PHED 15:22 → PHEDA 18:37 → HIMN 22:05 → N06A 05-11 11:02
PROVIDERS: ADMIT Hospitalist; ATTEND Hospitalist
DX: I26.99 Other pulmonary embolism without acute cor pulmonale (principal); I95.89 Other hypotension; G89.29 Other chronic pain; M54.5 Low back pain; M47.9 Spondylosis, unspecified; R42 Dizziness and giddiness; Z86.12 Personal history of poliomyelitis; R53.1 Weakness; M54.81 Occipital neuralgia; R26.81 Unsteadiness on feet; I07.1 Rheumatic tricuspid insufficiency; I10 Essential (primary) hypertension; M17.0 Bilateral primary osteoarthritis of knee; Z87.891 Personal history of nicotine dependence
CPT/HCPCS: 71045; 71275; 80053; 81001; 83735; 84484; 85025; 85027; 85379; 85610; 85730; 87077; 87086; 87186; 87641; 93005; 93306; 96361; 96365; J0696; J1644; J7040; Q9967

== ENCOUNTER 2017-05-14 16:01 | Observation (INO) | payer OTHER, MEDICAID ==
[~2017-05-14] VITALS: Ht 158.8 cm; Wt 55.0 kg
[~2017-05-14 16:01] MED LIST changes: +APIX5TAB PO; -BP med PO; -CHLO.12%30 SWISH-SPIT; +DORZ2SOL EACH EYE; -IBUP-232 PO; -LIDO1PAD52 TOPICAL; +TYLE325T PO
[2017-05-14 16:07] VITALS: BP 161/91; PULSE 63; RESP 20; TEMP 97.9; O2SAT 100
[2017-05-14] MEDS ORDERED: SODIUM CHLORIDE 0.9% FLUSH 10 ML FLUSH IVF PRN (16:30)
--- NOTE | 2017-05-14 16:47 | PD ---
HPI Chief Complaint: General Weakness Time Seen by Provider: 16:24 Travel History International Travel<30 days: No Contact w/Intl Traveler<30days: No Traveled to known affect area: No History of Present Illness HPI 61-year-old female patient with history of pulmonary embolism currently on Eliquis, was admitted and released from the hospital yesterday, presents to the ER today for general weakness today according to her daughter. She denies any fevers, vomiting, but reports that she is getting more short of breath. She denies any coughing or other symptoms. Modifying Factors: None Associated Signs & Symptoms: General weakness, shortness of breath Risk Factors: PE PFSH Past Medical History Hx Anticoagulant Therapy: No Arthritis: Yes (DEGENRATIVE DISC, bilat knees) Cardiovascular Problems: Yes (HTN, CHOL) High Cholesterol: Yes Diabetes: No Diminished Hearing: No Fibromyalgia: Yes Headaches: Yes Hypertension: Yes Musculoskeletal: Yes (HX POLOIO;DDD) Neurologic: Yes (Occipital neuralgia, pt on nerve block shots, NEUROPATHY) Respiratory: Yes (PE) Immunizations Current: Yes Tetanus Vaccination: < 5 Years Influenza Vaccination: No Menopausal: Yes : 5 Para: 5 Miscarriage: 0 : 0 Past Surgical History Gynecologic Surgery: Yes (hyesterectomy 1998) Hysterectomy: Yes (1998) Social History Alcohol Use: No Tobacco Use: No (2012 STOPPED smoked 1 pack every week) Substance Use: No Allergies-Medications (Allergen,Severity, Reaction): Coded Allergies: No Known Allergies (Verified Allergy, Unknown, 05/14/17) Reported Meds & Prescriptions Reported Meds & Active Scripts Active Tylenol (Acetaminophen) 325 Mg Tab 650 Mg PO Q6H PRN Eliquis (Apixaban) 5 Mg Tab 5 Mg PO BID Eliquis (Apixaban) 5 Mg Tab 10 Mg PO BID Fluvastatin (Fluvastatin Sodium) 20 Mg Cap 20 Mg PO HS D3 Maximum Strength (Cholecalciferol) 5,000 Unit Cap 5,000 Units PO DAILY Lasix (Furosemide) 20 Mg Tab 20 Mg PO DAILY PRN Fluticasone Nasal [place] 50 Mcg/Act Naspr 100 Mcg EACH NARE BID 50 mcg/spray Reported Dorzolamide Opth Drops (Dorzolamide HCl) 2% Soln 1 Drop EACH EYE DAILY Senna-Tabs (Sennosides) 8.6 Mg Tab 8.6 Mg PO DAILY Hydrocodone-Acetaminophen 5-325 mg Tab 1 Tab PO BID PRN Review of Systems Except as stated in HPI: all other systems reviewed are Neg Physical Exam Narrative GENERAL: Well-developed elderly -[place] female patient currently in mild distress. Awake and oriented 3. SKIN: Focused skin assessment warm/dry. HEAD: Atraumatic. Normocephalic. EYES: Pupils equal and round. No scleral icterus. No injection or drainage. ENT: No nasal bleeding or discharge. Mucous membranes pink and moist. NECK: Trachea midline. No JVD. CARDIOVASCULAR: Regular rate and rhythm. No murmur appreciated. RESPIRATORY: No accessory muscle use. Clear to auscultation. Breath sounds equal bilaterally. GASTROINTESTINAL: Abdomen soft, non-tender, nondistended. Hepatic and splenic margins not palpable. MUSCULOSKELETAL: No obvious deformities. No clubbing. No cyanosis. No edema. NEUROLOGICAL: Awake and alert. No obvious cranial nerve deficits. Motor grossly within normal limits. Normal speech. PSYCHIATRIC: Appropriate mood and affect; insight and judgment normal. Data Data Last Documented VS Vital Signs Date Time Temp Pulse Resp B/P (MAP) Pulse Ox O2 Delivery O2 Flow Rate FiO2 05/14/17 18:41 64 16 143/83 (103) 100 Room Air 05/14/17 16:07 97.9 Orders Orders Complete Blood Count With Diff (05/14/17 16:24) Comprehensive Metabolic Panel (05/14/17 16:24) B-Type Natriuretic Peptide (05/14/17 16:24) Ckmb (Isoenzyme) Profile (05/14/17 16:24) Troponin I (05/14/17 16:24) Iv Access Insert/Monitor (05/14/17 16:24) Electrocardiogram (05/14/17 16:24) Ecg Monitoring (05/14/17 16:24) Oximetry (05/14/17 16:24) Oxygen Administration (05/14/17 16:24) Chest, Single Ap (05/14/17 16:24) Sodium Chloride 0.9% Flush (Ns Flush) (05/14/17 16:30) Admit Order (Ed Use Only) (05/14/17 18:58) Labs Laboratory Tests Test 05/14/17 16:45 White Blood Count 6.5 TH/MM3 Red Blood Count 3.79 MIL/MM3 Hemoglobin 11.8 GM/DL Hematocrit 34.3 % Mean Corpuscular Volume 90.6 FL Mean Corpuscular Hemoglobin 31.1 PG Mean Corpuscular Hemoglobin Concent 34.3 % Red Cell Distribution Width 14.4 % Platelet Count 211 TH/MM3 Mean Platelet Volume 8.7 FL Neutrophils (%) (Auto) 46.6 % Lymphocytes (%) (Auto) 44.9 % Monocytes (%) (Auto) 7.3 % Eosinophils (%) (Auto) 0.7 % Basophils (%) (Auto) 0.5 % Neutrophils # (Auto) 3.0 TH/MM3 Lymphocytes # (Auto) 2.9 TH/MM3 Monocytes # (Auto) 0.5 TH/MM3 Eosinophils # (Auto) 0.0 TH/MM3 Basophils # (Auto) 0.0 TH/MM3 CBC Comment DIFF FINAL Differential Comment Blood Urea Nitrogen 16 MG/DL Creatinine 0.62 MG/DL Random Glucose 77 MG/DL Total Protein 6.7 GM/DL Albumin 3.4 GM/DL Calcium Level 9.7 MG/DL Alkaline Phosphatase 57 U/L Aspartate Amino Transf (AST/SGOT) 49 U/L Alanine Aminotransferase (ALT/SGPT) 41 U/L Total Bilirubin 0.3 MG/DL Sodium Level 141 MEQ/L Potassium Level 3.4 MEQ/L Chloride Level 107 MEQ/L Carbon Dioxide Level 26.4 MEQ/L Anion Gap 8 MEQ/L Estimat Glomerular Filtration Rate 118 ML/MIN Total Creatine Kinase 47 U/L Troponin I LESS THAN 0.02 NG/ML B-Type Natriuretic Peptide 15 PG/ML MDM Medical Decision Making Medical Screen Exam Complete: Yes Emergency Medical Condition: Yes Medical Record Reviewed: Yes Interpretation(s) EKG shows NSR, no ST elevation or depression, and no arrhythmias. No significant T-wave inversions. Laboratory Tests Test 05/14/17 16:45 Red Blood Count 3.79 MIL/MM3 (4.00-5.30) Hematocrit 34.3 % (35.0-46.0) Lymphocytes (%) (Auto) 44.9 % (9.0-44.0) Aspartate Amino Transf (AST/SGOT) 49 U/L (15-37) Potassium Level 3.4 MEQ/L (3.5-5.1) Troponin I LESS THAN 0.02 NG/ML Last 24 hours Impressions Chest X-Ray 05/14/17 1624 Signed Impressions: Service Date/Time: Sunday, May 14, 2017 16:34 - CONCLUSION: 1. Mild atelectatic changes of the left hemidiaphragm. Lungs otherwise clear. 2. Heart size is normal. Beto Zuñiga MD Differential Diagnosis General weakness, shortness of breath: Worsening PE versus pneumonia versus dehydration versus metabolic issues Narrative Course Lab work, chest x-ray, EKG was fairly unremarkable. However, considering her history, there is concern for worsening PE. She does not appear to be doing well at home according to the family. Case is discussed with Dr. Gurrola for admission. Diagnosis Primary Impression: Pulmonary embolism Additional Impression: Shortness of breath Admitting Information Admitting Physician Requests: Admit Dayton Santana MD May 14, 2017 16:47
--- NOTE | 2017-05-14 17:00 | RADRPT ---
EXAM DATE/TIME: 05/14/2017 16:34 [facility] COMPARISON: CHEST SINGLE AP, May 10, 2017, 16:04. INDICATIONS : Short of breath MEDICAL HISTORY : Polio. Bilateral large pulmonary emboli, lower lobe predominant. SURGICAL HISTORY : Hysterectomy. ENCOUNTER: Initial ACUITY: 2 days PAIN SCORE: 3/10 LOCATION: Bilateral chest FINDINGS: A single view of the chest demonstrates the lungs to be symmetrically aerated with mild atelectatic c hanges of the left hemidiaphragm. Lungs are otherwise clear. Heart size is normal. Dextroscoliosis of the dorsal spine. Osseous structures are otherwise intact. CONCLUSION: 1. Mild atelectatic changes of the left hemidiaphragm. Lungs otherwise clear. 2. Heart size is normal. Beto Zuñiga MD on May 14, 2017 at 16:57 Board Certified Radiologist. This report was verified electronically.
[2017-05-14 17:11] VITALS: RESP 20; O2SAT 100
[2017-05-14 17:20] LABS: BASOPHIL % 0.5 % (0.0-2.0); EOSINOPHIL % 0.7 % (0.0-4.0); HEMATOCRIT 34.3 % (35.0-46.0); HEMOGLOBIN 11.8 GM/DL (11.6-15.3); LYMPH % 44.9 % (9.0-44.0); LYMPHOCYTE # 2.9 TH/MM3 (1.0-4.8); MEAN CELL VOLUME 90.6 FL (80.0-100.0); MEAN CORPUSCULAR HEMOGLOBIN 31.1 PG (27.0-34.0); MEAN CORPUSCULAR HGB CONC 34.3 % (32.0-36.0); MEAN PLATELET VOLUME 8.7 FL (7.0-11.0); MONO % 7.3 % (0.0-8.0); MONOCYTE # 0.5 TH/MM3 (0-0.9); NEUT % 46.6 % (16.0-70.0); PLATELET COUNT 211 TH/MM3 (150-450); RED BLOOD COUNT 3.79 MIL/MM3 (4.00-5.30); RED CELL DISTRIBUTION WIDTH 14.4 % (11.6-17.2); WHITE BLOOD COUNT 6.5 TH/MM3 (4.0-11.0)
[2017-05-14 17:39] LABS: ALBUMIN 3.4 GM/DL (3.4-5.0); ALT (GPT) 41 U/L (10-53); AST (GOT) 49 U/L (15-37); BICARBONATE 26.4 MEQ/L (21.0-32.0); BLOOD UREA NITROGEN 16 MG/DL (7-18); CALCIUM 9.7 MG/DL (8.5-10.1); CHLORIDE 107 MEQ/L (98-107); CREATININE 0.62 MG/DL (0.50-1.00); GLOMERULAR FILTRATION RATE 118 ML/MIN (>89); GLUCOSE,RANDOM 77 MG/DL (74-106); SODIUM (NA) 141 MEQ/L (136-145)
[2017-05-14 17:42] LABS: ALKALINE PHOSPHATASE 57 U/L (45-117); TOTAL BILIRUBIN ADULT 0.3 MG/DL (0.2-1.0); TOTAL PROTEIN 6.7 GM/DL (6.4-8.2); TROPONIN I LESS THAN 0.02 NG/ML (0.02-0.05)
[2017-05-14 18:41] VITALS: BP 143/83; PULSE 64; RESP 16; O2SAT 100
[2017-05-14] MEDS ORDERED: SODIUM CHLORIDE 0.9% FLUSH 10 ML FLUSH IV FLUSH PRN (19:30)
[2017-05-14] MEDS ORDERED: NALOXONE HCL 0.4 MG/ML AMP IV PUSH PRN (19:30)
--- NOTE | 2017-05-14 20:22 | HHI.HP ---
[facility] Service [facility] Primary Care Physician Paco Iyer MD Admission Diagnosis Bilateral PE/worsening shortness of breath Diagnoses: Chief Complaint: dyspnea Travel History International Travel<30 Days: No Contact w/Intl Traveler <30 Da: No Traveled to Known Affected Are: No History of Present Illness 61 y/o female with a history of HLD and bilateral PE( diagnosed on 05/13/17, currently on Eliquis) presented to the ED with complaints of increasing shortness of breath and dizziness. Patient was discharged yesterday and states she was laying in bed today and felt short of breath and lightheaded. She states she has been taking her medications but has not had much of an appetite today. She has not been drinking much fluid and only ate a bowl of cereal. She complains of back pain when taking a deep breath, and states she feels weak. She denies any chest pain, cough, or fevers. Urine culture last admission grew Enterococcus Faecalis, but patient denies any dysuria or frequency. Past Family Social History Past Medical History HLD Bilateral PE 05/2017 Chronic back pain Occipital neuralgia Polio Past Surgical History Hysterectomy Reported Medications Reported Meds & Active Scripts Active Tylenol (Acetaminophen) 325 Mg Tab 650 Mg PO Q6H PRN Eliquis (Apixaban) 5 Mg Tab 5 Mg PO BID Eliquis (Apixaban) 5 Mg Tab 10 Mg PO BID Fluvastatin (Fluvastatin Sodium) 20 Mg Cap 20 Mg PO HS D3 Maximum Strength (Cholecalciferol) 5,000 Unit Cap 5,000 Units PO DAILY Lasix (Furosemide) 20 Mg Tab 20 Mg PO DAILY PRN Fluticasone Nasal Roach 50 Mcg/Act Naspr 100 Mcg EACH NARE BID 50 mcg/spray Reported Dorzolamide Opth Drops (Dorzolamide HCl) 2% Soln 1 Drop EACH EYE DAILY Senna-Tabs (Sennosides) 8.6 Mg Tab 8.6 Mg PO DAILY Hydrocodone-Acetaminophen 5-325 mg Tab 1 Tab PO BID PRN Allergies: Coded Allergies: No Known Allergies (Verified Allergy, Unknown, 05/14/17) Active Ordered Medications Current Medications Medications (Trade) Dose Ordered Sig/Irma Route Start Time Stop Time Status Last Admin (NS Flush) 2 ml UNSCH PRN IV FLUSH 05/14/17 19:30 (NS Flush) 2 ml BID IV FLUSH 05/14/17 21:00 (Narcan Inj) 0.4 mg UNSCH PRN IV PUSH 05/14/17 19:30 Family History Patient denies any family history Social History Tobacco use: Denies Alcohol use: Denies Illicit drug use: Denies Physical Exam Vital Signs Vital Signs Date Time Temp Pulse Resp B/P (MAP) Pulse Ox O2 Delivery O2 Flow Rate FiO2 05/14/17 18:41 64 16 143/83 (103) 100 Room Air 05/14/17 17:11 20 100 Room Air 05/14/17 16:13 100 Room Air 05/14/17 16:07 97.9 63 20 161/91 (114) 100 Physical Exam GENERAL: This is a well-nourished, well-developed patient, in no apparent distress. SKIN: No rashes, ecchymoses or lesions. Cool and dry. HEAD: Atraumatic. Normocephalic. EYES: Pupils equal round and reactive. ENT: Nose without bleeding, purulent drainage or septal hematoma. Airway patent. Dry mucosa NECK: Trachea midline. No JVD or lymphadenopathy. CARDIOVASCULAR: Regular rate and rhythm without murmurs, gallops, or rubs. RESPIRATORY: Diminished bases, no wheezes or rhonchi. GASTROINTESTINAL: Abdomen soft, non-tender, nondistended. MUSCULOSKELETAL: Extremities without clubbing, cyanosis, or edema. No joint tenderness, effusion, or edema noted. No calf tenderness. NEUROLOGICAL: Awake and alert. Motor and sensory grossly within normal limits. Normal speech. Laboratory Laboratory Tests Test 05/14/17 16:45 White Blood Count 6.5 Red Blood Count 3.79 Hemoglobin 11.8 Hematocrit 34.3 Mean Corpuscular Volume 90.6 Mean Corpuscular Hemoglobin 31.1 Mean Corpuscular Hemoglobin Concent 34.3 Red Cell Distribution Width 14.4 Platelet Count 211 Mean Platelet Volume 8.7 Neutrophils (%) (Auto) 46.6 Lymphocytes (%) (Auto) 44.9 Monocytes (%) (Auto) 7.3 Eosinophils (%) (Auto) 0.7 Basophils (%) (Auto) 0.5 Neutrophils # (Auto) 3.0 Lymphocytes # (Auto) 2.9 Monocytes # (Auto) 0.5 Eosinophils # (Auto) 0.0 Basophils # (Auto) 0.0 CBC Comment DIFF FINAL Differential Comment Blood Urea Nitrogen 16 Creatinine 0.62 Random Glucose 77 Total Protein 6.7 Albumin 3.4 Calcium Level 9.7 Alkaline Phosphatase 57 Aspartate Amino Transf (AST/SGOT) 49 Alanine Aminotransferase (ALT/SGPT) 41 Total Bilirubin 0.3 Sodium Level 141 Potassium Level 3.4 Chloride Level 107 Carbon Dioxide Level 26.4 Anion Gap 8 Estimat Glomerular Filtration Rate 118 Total Creatine Kinase 47 Troponin I LESS THAN 0.02 B-Type Natriuretic Peptide 15 Result Diagram: 05/14/17 1645 05/14/17 1645 Imaging Last Impressions Chest X-Ray 05/14/17 1624 Signed Impressions: Service Date/Time: Sunday, May 14, 2017 16:34 - CONCLUSION: 1. Mild atelectatic changes of the left hemidiaphragm. Lungs otherwise clear. 2. Heart size is normal. MD Carina Boogie VTE Risk Assessment Caprini VTE Risk Assessment: Mod/High Risk (score >= 2) Caprini Risk Assessment Model Point Value = 1 Point Value = 2 Point Value = 3 Point Value = 5 Age 41-60 Minor surgery BMI > 25 kg/m2 Swollen legs Varicose veins or History of unexplained or recurrent spontaneous Oral contraceptives or hormone replacement Sepsis (< 1 month) Serious lung disease, including pneumonia (< 1 month) Abnormal pulmonary function Acute myocardial infarction Congestive heart failure (< 1 month) History of inflammatory bowel disease Medical patient at bed rest Age 61-74 Arthroscopic surgery Major open surgery (> 45 min) Laparoscopic surgery (> 45 min) Malignancy Confined to bed (> 72 hours) Immobilizing plaster cast Central venous access Age >= 75 History of VTE Family history of VTE Factor V Leiden Prothrombin [id number] Lupus anticoagulant Anticardiolipin antibodies Elevated serum homocysteine Heparin-induced thrombocytopenia Other congenital or acquired thrombophilia Stroke (< 1 month) Elective arthroplasty Hip, pelvis, or leg fracture Acute spinal cord injury (< 1 month) Prophylaxis Regimen Total Risk Factor Score Risk Level Prophylaxis Regimen 0-1 Low Early ambulation 2 Moderate Order ONE of the following: *Sequential Compression Device (SCD) *Heparin 5000 units SQ BID 3-4 Higher Order ONE of the following medications: *Heparin 5000 units SQ TID *Enoxaparin/Lovenox 40 mg SQ daily (WT < 150 kg, CrCl > 30 mL/min) *Enoxaparin/Lovenox 30 mg SQ daily (WT < 150 kg, CrCl > 10-29 mL/min) *Enoxaparin/Lovenox 30 mg SQ BID (WT < 150 kg, CrCl > 30 mL/min) AND/OR *Sequential Compression Device (SCD) 5 or more Highest Order ONE of the following medications: *Heparin 5000 units SQ TID (Preferred with Epidurals) *Enoxaparin/Lovenox 40 mg SQ daily (WT < 150 kg, CrCl > 30 mL/min) *Enoxaparin/Lovenox 30 mg SQ daily (WT < 150 kg, CrCl > 10-29 mL/min) *Enoxaparin/Lovenox 30 mg SQ BID (WT < 150 kg, CrCl > 30 mL/min) AND *Sequential Compression Device (SCD) Assessment and Plan Problem List: (1) UTI (urinary tract infection) ICD Code: N39.0 - Urinary tract infection, site not specified Status: Acute (2) Dyspnea ICD Code: R06.00 - Dyspnea, unspecified (3) Pulmonary embolism ICD Code: I26.99 - Other pulmonary embolism without acute cor pulmonale Status: Chronic Assessment and Plan 61 y/o female with a history of HLD and bilateral PE( diagnosed on 05/13/17, currently on Eliquis) presented to the ED with complaints of increasing shortness of breath and dizziness. Dyspnea, increasing, history of bilateral PE on 05/13/17, likely due to weakness Echo reviewed shows EF of 60-65% Chest xray reviewed and shows no acute abnormalities Troponin less than .02 -Trend troponin and EKGs -Monitor oxygen saturation UTI, culture grew Enterococcus faecalis yesterday Treated with 1 dose of Rocephin -Start Cipro 250mg BID PO Physical deconditioning, possibly due to bilateral PE and UTI -PT eval and treat -Patient may need home health with PT Hypokalemia, potassium 3.4 -Supplementation ordered, trend potassium and replace as needed DVT prophylaxis: Eliquis Discussed Condition With Patient, Dr. Gurrola and Patient's Daughter Physician Certification 2 Midnight Certification Type: Admission for Inpatient Services Order for Inpatient Services The services are ordered in accordance with Medicare regulations or non- Medicare payer requirements, as applicable. In the case of services not specified as inpatient-only, they are appropriately provided as inpatient services in accordance with the 2-midnight benchmark. Estimated LOS (days): 2 days is the estimated time the patient will need to remain in the hospital, assuming treatment plan goals are met and no additional complications. Post-Hospital Plan: Not yet determined Notes: Patient only meets observation. Certification could not be deleted but will be billed under observation code. Problem Qualifiers (1) UTI (urinary tract infection): Qualified Codes: N30.00 - Acute cystitis without hematuria (2) Dyspnea: Qualified Codes: R06.02 - Shortness of breath (3) Pulmonary embolism: Deisi Hoyos May 14, 2017 20:21
[2017-05-14] MEDS ORDERED: POTASSIUM CHLORIDE 20 MEQ CONTROLLED RELEASE TAB PO ONE (21:00)
[2017-05-14] MEDS: APIXABAN 5 MG TABLET PO SCH (21:00)
[2017-05-14] MEDS: SODIUM CHLORIDE 0.9% FLUSH 10 ML FLUSH IV FLUSH SCH (21:01)
[2017-05-14] MEDS: PRAVASTATIN SOD 10 MG TAB PO SCH (21:01)
[2017-05-14] MEDS: CIPROFLOXACIN 250 MG TAB PO SCH (21:36)
[2017-05-14] MEDS: ACETAMINOPHEN 325 MG TAB PO PRN (21:37)
[2017-05-14 22:15] VITALS: BP 105/70; PULSE 83; RESP 16; TEMP 96.2; O2SAT 99
[2017-05-15] VITALS (10 sets, daily range): BP systolic 94–135; BP diastolic 58–81; PULSE 68–96; RESP 14–20; TEMP 96.6–98.8; O2SAT 95–100
[2017-05-15 00:53] LABS: TROPONIN I LESS THAN 0.02 NG/ML (0.02-0.05)
[2017-05-15] MEDS: ACETAMINOPHEN 325 MG TAB PO PRN ×2 (03:55→21:41)
[2017-05-15 07:57] LABS: AUTOMATED NEUTROPHIL # 3.6 TH/MM3 (1.8-7.7); BASOPHIL % 0.4 % (0.0-2.0); EOSINOPHIL % 0.6 % (0.0-4.0); HEMATOCRIT 33.8 % (35.0-46.0); HEMOGLOBIN 11.4 GM/DL (11.6-15.3); LYMPH % 29.9 % (9.0-44.0); LYMPHOCYTE # 1.7 TH/MM3 (1.0-4.8); MEAN CELL VOLUME 91.1 FL (80.0-100.0); MEAN CORPUSCULAR HEMOGLOBIN 30.7 PG (27.0-34.0); MEAN CORPUSCULAR HGB CONC 33.7 % (32.0-36.0); MEAN PLATELET VOLUME 8.4 FL (7.0-11.0); MONO % 6.3 % (0.0-8.0); MONOCYTE # 0.4 TH/MM3 (0-0.9); NEUT % 62.8 % (16.0-70.0); PLATELET COUNT 215 TH/MM3 (150-450); RED CELL DISTRIBUTION WIDTH 14.4 % (11.6-17.2); WHITE BLOOD COUNT 5.7 TH/MM3 (4.0-11.0)
[2017-05-15 08:19] LABS: BICARBONATE 26.3 MEQ/L (21.0-32.0); BLOOD UREA NITROGEN 19 MG/DL (7-18); CALCIUM 9.4 MG/DL (8.5-10.1); CHLORIDE 107 MEQ/L (98-107); CREATININE 0.71 MG/DL (0.50-1.00); GLOMERULAR FILTRATION RATE 101 ML/MIN (>89); GLUCOSE,RANDOM 94 MG/DL (74-106); SODIUM (NA) 139 MEQ/L (136-145)
[2017-05-15 08:34] LABS: TROPONIN I LESS THAN 0.02 NG/ML (0.02-0.05)
[2017-05-15] MEDS: DORZOLAMIDE 2% OPTH SOLN 200 DROP/10 ML BTLO EACH EYE SCH (08:48)
[2017-05-15] MEDS: SODIUM CHLORIDE 0.9% FLUSH 10 ML FLUSH IV FLUSH SCH ×2 (08:48→21:00)
[2017-05-15] MEDS: CIPROFLOXACIN 250 MG TAB PO SCH ×2 (08:48→21:39)
[2017-05-15] MEDS: APIXABAN 5 MG TABLET PO SCH ×2 (08:48→21:40)
--- NOTE | 2017-05-15 10:33 | HHI.PR ---
Subjective Remarks Follow-up on patient with dyspnea, recent rediagnosed bilateral PEs on Eliquis. Patient seen and examined. Patient reports her breathing has improved. She continues to complain of constant dull left-sided chest pain which she states has been ongoing since she was started on heparin drip her last admission reports worsening after beginning Eliquis on Sunday. She denies any fever or chills. She denies any nausea, vomiting or abdominal pain. She has yet to get up with physical therapy. Objective Vitals Vital Signs Date Time Temp Pulse Resp B/P (MAP) Pulse Ox O2 Delivery O2 Flow Rate FiO2 05/15/17 07:50 98.8 73 20 115/69 (84) 100 05/15/17 04:59 18 05/15/17 04:14 98.4 72 16 135/81 (99) 95 05/15/17 00:23 96.6 89 16 99/61 (74) 96 05/14/17 22:15 96.2 83 16 105/70 (82) 99 05/14/17 21:54 05/14/17 18:41 64 16 143/83 (103) 100 Room Air 05/14/17 17:11 20 100 Room Air 05/14/17 16:13 100 Room Air 05/14/17 16:07 97.9 63 20 161/91 (114) 100 I/O 05/14/17 05/14/17 05/14/17 05/15/17 05/15/17 05/15/17 07:00 15:00 23:00 07:00 15:00 23:00 Intake Total 680 ml Balance 680 ml Intake Oral 680 ml # Voids 2 Result Diagram: 05/15/17 0615 05/15/17 0615 Imaging Last Impressions Chest X-Ray 05/14/17 1624 Signed Impressions: Service Date/Time: Sunday, May 14, 2017 16:34 - CONCLUSION: 1. Mild atelectatic changes of the left hemidiaphragm. Lungs otherwise clear. 2. Heart size is normal. Beto Zuñiga MD Objective Remarks GENERAL: This is a well-nourished, well-developed female patient, in no apparent distress. Awake and alert. Family at the bedside. SKIN: Cool and dry. HEAD: Atraumatic. Normocephalic. EYES: EOMI. Sclera anicteric. ENT: Nose without bleeding or purulent drainage. Airway patent. MMM. NECK: Trachea midline. CARDIOVASCULAR: Regular rate and rhythm without murmurs, gallops, or rubs. Tenderness palpation left anterior chest wall. RESPIRATORY: Nonlabored. Clear to auscultation bilaterally. GASTROINTESTINAL: Abdomen soft, non-tender, nondistended. (+)BS x 4 quadrants. MUSCULOSKELETAL: Extremities without clubbing or cyanosis. Trace bilateral lower extremity edema. NEUROLOGICAL: Awake and alert. Motor and sensory grossly within normal limits. No focal neurologic findings appreciated. Normal speech. Medications and IVs Current Medications Medications (Trade) Dose Ordered Sig/Irma Route Start Time Stop Time Status Last Admin (NS Flush) 2 ml UNSCH PRN IV FLUSH 05/14/17 19:30 (NS Flush) 2 ml BID IV FLUSH 05/14/17 21:00 05/15/17 08:48 (Narcan Inj) 0.4 mg UNSCH PRN IV PUSH 05/14/17 19:30 (Tylenol) 650 mg Q4H PRN PO 05/14/17 20:15 05/15/17 03:55 (Eliquis) 10 mg BID PO 05/14/17 21:00 05/15/17 08:48 (Trusopt 2% Opth Soln) 1 drop DAILY EACH EYE 05/15/17 09:00 05/15/17 08:48 (Pravachol) 20 mg HS PO 05/14/17 21:00 05/14/17 21:01 (Cipro) 250 mg Q12HR PO 05/14/17 21:00 05/15/17 08:48 A/P Problem List: (1) UTI (urinary tract infection) ICD Code: N39.0 - Urinary tract infection, site not specified Status: Acute (2) Dyspnea ICD Code: R06.00 - Dyspnea, unspecified (3) Pulmonary embolism ICD Code: I26.99 - Other pulmonary embolism without acute cor pulmonale Status: Chronic Assessment and Plan 61 y/o female with a history of HLD and bilateral PE( diagnosed on 05/13/17, currently on Eliquis) presented to the ED with complaints of increasing shortness of breath and dizziness. Dyspnea and dizziness, suspect orthostatic hypotension History of provoked bilateral PE on 2/11/18 s/p fall at home 04/02/17 with left hip contusion/pain and limited mobility -Echo reviewed shows EF of 60-65%. BNP 15. -Chest xray reviewed and shows no acute abnormalities -Continue on Eliquis. Consult hematology, appreciate recommendations -Continues to monitor respiratory status. Patient currently satting 100% on room air. 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 Problem Qualifiers (1) UTI (urinary tract infection): Qualified Codes: N30.00 - Acute cystitis without hematuria (2) Dyspnea: Qualified Codes: R06.02 - Shortness of breath (3) Pulmonary embolism: Lauren Howard May 15, 2017 10:33
[2017-05-15 17:04] LABS: MAGNESIUM 1.8 MG/DL (1.5-2.5); PHOSPHORUS 3.3 MG/DL (2.5-4.9)
[2017-05-15] MEDS: PRAVASTATIN SOD 10 MG TAB PO SCH (21:39)
--- NOTE | 2017-05-16 00:53 | RADRPT ---
EXAM DATE/TIME: 05/16/2017 00:27 [facility] COMPARISON: No previous studies available for comparison. INDICATIONS : Bilateral pulmonary embolism. MEDICAL HISTORY : PE. AV shunt. SURGICAL HISTORY : Hysterectomy. ENCOUNTER: Initial ACUITY: 1 day PAIN SCORE: 4/10 LOCATION: Bilateral leg. TECHNIQUE: Venous ultrasound of the left and right leg was performed from the inguinal ligament to the proximal calf. Real-time, color Doppler and spectral tracing, compression and augmentation techniques were us ed. FINDINGS: RIGHT LEG: There is normal compressibility of the deep venous system from the inguinal region to the proximal ca lf. No echogenic clot is seen in the lumen of the common femoral, femoral, popliteal, and posterior tibial veins. There is a normal response of the venous system to proximal and distal augmentation an d respiration. LEFT LEG: There is normal compressibility of the deep venous system from the inguinal region to the proximal ca lf. No echogenic clot is seen in the lumen of the common femoral, femoral, popliteal, and posterior tibial veins. There is a normal response of the venous system to proximal and distal augmentation an d respiration. CONCLUSION: Normal examination. Sean Sibley MD on May 16, 2017 at 0:50 Board Certified Radiologist. This report was verified electronically.
[2017-05-16 03:34] VITALS: BP 125/66; PULSE 74; RESP 16; TEMP 98.2; O2SAT 98
--- NOTE | 2017-05-16 07:57 | MB ---
cc: JULI ADAMS DATE OF CONSULTATION 05/15/2017 REASON FOR CONSULTATION Patient with a history of pulmonary embolism who presents to the emergency department with increasing shortness of breath and dizziness. HISTORY OF PRESENT ILLNESS This is a 61-year-old female who was recently diagnosed with bilateral pulmonary embolism on May 13, 2017. She had presented to the [place] emergency room with progressive dyspnea. A CT angiogram was obtained which showed a bilateral large pulmonary emboli with lower lobe predominant. There was a small pulmonary embolus of the right upper lobe as well. She did not have any lower extremity pain or swelling and a Doppler ultrasound of the lower extremities was not obtained at that time. She does not have any prior history of DVT or pulmonary embolism before this episode. She has a history of hyperlipidemia, polio, occipital neuralgia and chronic back pain. She states that she spends present 50% per of her awake time in a chair or a bed. She follows with neurology due to history of headaches and peripheral neuropathy. She now presents to the emergency room with progressive weakness and shortness of breath. On her last hospital admission, she was treated for UTI with Enterococcus faecalis. She is currently on Cipro. She states that her chest pain and shortness of breath have improved. Cardiology workup is ongoing by the primary team. I have been asked to make further recommendations regarding her bilateral pulmonary embolism. She had a chest x-ray on this admission which did not show any acute cardiopulmonary abnormality. She denies any hemoptysis. She denies any chest pain. She says that she easily gets winded especially when she ambulates. The patient states that she became increasingly immobile over the past two months because she had a fall in April and she hurt her left hip. She did not have a hip fracture, but due to increasing pain, she has not been ambulating as much. The patient does not smoke cigarettes. She does not drink alcohol. No illicit drug use. She states that she was on estrogen therapy for many years, but stopped two years ago. REVIEW OF SYSTEMS A comprehensive 14-point review of systems was completed which is negative except as described in the HPI. PAST MEDICAL HISTORY 1. Bilateral feet pulmonary thromboembolism 2. Chronic back pain 3. Occipital neuralgia 4. History of polio. 5. Hyperlipidemia PAST SURGICAL HISTORY History of hysterectomy. MEDICATIONS 1. Eliquis 5 mg p.o. b.i.d. 2. Fluvastatin 20 mg p.o. q.h.s. 3. Vitamin D3 4. Lasix 20 mg p.o. daily 5. Fluticasone 50 mcg/100 mcg each nare b.i.d. 6. Dorzolamide hydrops 2% each eye 7. Senna tabs 8.6 mg p.o. daily 8. Lortab 5/325 one tablet p.o. b.i.d. ALLERGIES NO KNOWN DRUG ALLERGIES. FAMILY HISTORY Reviewed and is noncontributory to this admission. SOCIAL HISTORY She has a remote history of tobacco abuse. She quit more than 30 years ago. No alcohol abuse. No illicit drug use. She lives by herself. PHYSICAL EXAMINATION VITAL SIGNS: Blood pressure is 109/72, pulse is in the 70s, temperature is 98.1, O2 sats are 100% on room air. GENERAL: This is a thin, chronically ill-appearing female in no apparent distress. HEENT: Pupils are equal, round, reactive to light. EOMI. No oral thrush. No oral lesions. NECK: Supple. No JVD, no bruits. No lymphadenopathy. CHEST: Clear to auscultation bilaterally. CARDIAC: S1-S2 regular rate and rhythm. ABDOMEN: Soft, nontender, nondistended. Bowel sounds are present. EXTREMITIES: Bilateral trace edema, no edema or cyanosis. SKIN: Without any petechiae lesion or bruises. NEUROLOGIC: No focal deficits. PSYCHIATRIC: Mood and affect is appropriate. LABORATORY DATA WBC 5.7, hemoglobin 11.4, platelet count 215. Serum chemistries sodium 139, potassium 3.9, chloride 107, BUN 19, creatinine 0.71, phosphorus 3.3, magnesium 1.8, TSH is 3.4. Imaging was reviewed in the EMR ASSESSMENT/PLAN This is a 61-year-old female who has a recent diagnosis of bilateral pulmonary embolism, history of hyperlipidemia, chronic back pain occipital neurology, polio, has a history of limited mobility who presents to the emergency department with progressive dyspnea. Progressive dyspnea and his setting of recent bilateral pulmonary embolism. I reviewed her CT angiogram and the burden of pulmonary emboli is quite large. It involves both lower lobes. There is a small pulmonary embolus in the right upper lobe as well. This is a likely cause of her dyspnea. I would recommend continued anticoagulation with Eliquis. If his dyspnea worsened, then we may obtain another CT angiogram to assess for any clot extension. I would also obtain Doppler ultrasound of the lower extremities to document any DVT. She would need anticoagulation indefinitely. Her risk factors for PE/DVT include history of immobility, recent fall with his hip injury, however she did not have a hip fracture, but she has had limited immobility. Thank you for allowing me to participate in the care of this patient. I will continue to follow this patient along. This patient could follow up in the hematology clinic in 3-4 weeks after hospital discharge. MD YEISON Vila/JORY /11:39 PM /7:25 AM
--- NOTE | 2017-05-16 08:22 | EKG ---
Date Performed: 05/15/2017 Time Performed: 00:44:29 PTAGE: 61 years EKG: Sinus rhythm Compared to previous tracing sinus rate is faster NORMAL ECG PREVIOUS TRACING : 05/14/2017 16.40 DOCTOR: Juan Antonio Figueroa Interpretating Date/Time 05/16/2017 08:20:31
--- NOTE | 2017-05-16 08:22 | EKG ---
Date Performed: 05/15/2017 Time Performed: 06:45:16 PTAGE: 61 years EKG: Sinus rhythm Since previous tracing, no significant change noted NORMAL ECG PREVIOUS TRACING : 05/15/2017 00.44 DOCTOR: Juan Antonio Figueroa Interpretating Date/Time 05/16/2017 08:20:41
--- NOTE | 2017-05-16 08:22 | EKG ---
Date Performed: 05/14/2017 Time Performed: 16:40:32 PTAGE: 61 years EKG: SINUS BRADYCARDIA Compared to previous tracing sinus rate is slower BORDERLINE ECG PREVIOUS TRACING : 05/10/2017 16.11 DOCTOR: Juan Antonio Figueroa Interpretating Date/Time 05/16/2017 08:20:17
[2017-05-16 08:45] VITALS: BP 130/67; PULSE 75; RESP 18; TEMP 97.9; O2SAT 100
[2017-05-16] MEDS ORDERED: CHOLECALCIFEROL (VIT D3) 5000 UNIT CAP PO SCH (09:00)
[2017-05-16] MEDS ORDERED: SENNOSIDES 8.6 MG TAB PO SCH (09:00)
[2017-05-16] MEDS: DORZOLAMIDE 2% OPTH SOLN 200 DROP/10 ML BTLO EACH EYE SCH (09:23)
[2017-05-16] MEDS: SODIUM CHLORIDE 0.9% FLUSH 10 ML FLUSH IV FLUSH SCH (09:24)
[2017-05-16] MEDS: APIXABAN 5 MG TABLET PO SCH (09:24)
[2017-05-16] MEDS: CIPROFLOXACIN 250 MG TAB PO SCH (09:24)
--- NOTE | 2017-05-16 10:07 | HHI.FF ---
Face to Face Verification Diagnosis: (1) Weakness (2) Impaired activities of daily living (3) Physical deconditioning (4) Balance problem (5) Gait instability Physical Therapy Order: Evaluate and Treat, Improve ambulation, Strength and gait training I have seen patient Dana Enriquez on 05/16/17. My clinical findings support the need for the requested home health care services because: Patient has SOB Deconditioned w/ increased weakness Limited ability to care for self High risk of falls I certify that my clinical findings support that this patient is homebound because: Post-op weakness Unsteady gait/balance Unsafe to leave home unassisted Unable to use public transportation Lauren Howard May 16, 2017 10:07
[2017-05-16] MEDS ORDERED: APIX5TAB PO (10:19)
[2017-05-16] MEDS ORDERED: CIPR250T52 PO (10:19)
--- NOTE | 2017-05-16 10:23 | HHI.DCPOC ---
Discharge Care Plan Diagnosis: (1) Vitamin D deficiency (2) Pulmonary embolism (3) UTI (urinary tract infection) (4) Shortness of breath (5) Weakness (6) Balance problem (7) Gait instability (8) Physical deconditioning (9) Impaired activities of daily living Goals to Promote Your Health * To prevent worsening of your condition and complications * To maintain your health at the optimal level Directions to Meet Your Goals Take your medications as prescribed Follow your dietary instruction Follow activity as directed Keep your appointments as scheduled Take your immunizations and boosters as scheduled If your symptoms worsen call your PCP, if no PCP go to Urgent Care Center or Emergency Room Smoking is Dangerous to Your Health. Avoid second hand smoke Call the 24-hour hour crisis hotline for domestic abuse at Lauren Howard May 16, 2017 10:23
--- NOTE | 2017-05-16 10:26 | HHI.DS ---
Discharge Summary Admission Date May 14, 2017 at 18:58 Discharge Date: May 16, 2017 Admitting Diagnosis Bilateral PE/worsening shortness of breath (1) UTI (urinary tract infection) ICD Code: N39.0 - Urinary tract infection, site not specified Status: Acute (2) Dyspnea ICD Code: R06.00 - Dyspnea, unspecified (3) Pulmonary embolism ICD Code: I26.99 - Other pulmonary embolism without acute cor pulmonale Status: Chronic (4) Weakness ICD Code: R53.1 - Weakness (5) Balance problem ICD Code: R26.89 - Other abnormalities of gait and mobility (6) Gait instability ICD Code: R26.81 - Unsteadiness on feet (7) Physical deconditioning ICD Code: R53.81 - Other malaise (8) Impaired activities of daily living ICD Code: R53.81 - Other malaise Procedures None Brief History - From Admission 61 y/o female with a history of HLD and bilateral PE( diagnosed on 05/13/17, currently on Eliquis) presented to the ED with complaints of increasing shortness of breath and dizziness. Patient was discharged yesterday and states she was laying in bed today and felt short of breath and lightheaded. She states she has been taking her medications but has not had much of an appetite today. She has not been drinking much fluid and only ate a bowl of cereal. She complains of back pain when taking a deep breath, and states she feels weak. She denies any chest pain, cough, or fevers. Urine culture last admission grew Enterococcus Faecalis, but patient denies any dysuria or frequency. CBC/BMP: 05/15/17 0615 05/15/17 0615 Significant Findings Laboratory Tests Test 05/14/17 16:45 05/15/17 00:22 05/15/17 06:15 Red Blood Count 3.79 MIL/MM3 (4.00-5.30) 3.70 MIL/MM3 (4.00-5.30) Hematocrit 34.3 % (35.0-46.0) 33.8 % (35.0-46.0) Lymphocytes (%) (Auto) 44.9 % (9.0-44.0) Aspartate Amino Transf (AST/SGOT) 49 U/L (15-37) Potassium Level 3.4 MEQ/L (3.5-5.1) Troponin I LESS THAN 0.02 NG/ML LESS THAN 0.02 NG/ML LESS THAN 0.02 NG/ML Hemoglobin 11.4 GM/DL (11.6-15.3) Blood Urea Nitrogen 19 MG/DL (7-18) 25-Hydroxy Vitamin D Total 29.3 ng/ML (30-100) Imaging Last Impressions Lower Extremity Ultrasound 05/15/17 0000 Signed Impressions: Service Date/Time: Tuesday, May 16, 2017 00:27 - CONCLUSION: Normal examination. Sean Sibley MD Chest X-Ray 05/14/17 1624 Signed Impressions: Service Date/Time: Sunday, May 14, 2017 16:34 - CONCLUSION: 1. Mild atelectatic changes of the left hemidiaphragm. Lungs otherwise clear. 2. Heart size is normal. Beto Zuñiga MD PE at Discharge GENERAL: This is a well-nourished, well-developed female patient, in no apparent distress. Awake and alert. Appears comfortable. Daughter at the bedside. SKIN: Cool and dry. HEAD: Atraumatic. Normocephalic. EYES: EOMI. Sclera anicteric. ENT: Nose without bleeding or purulent drainage. Airway patent. MMM. NECK: Trachea midline. CARDIOVASCULAR: Regular rate and rhythm without murmurs, gallops, or rubs. RESPIRATORY: Nonlabored. Clear to auscultation bilaterally. GASTROINTESTINAL: Abdomen soft, non-tender, nondistended. (+)BS x 4 quadrants. MUSCULOSKELETAL: Extremities without clubbing or cyanosis or bilateral lower extremity edema. NEUROLOGICAL: Awake and alert. Motor and sensory grossly within normal limits. No focal neurologic findings appreciated. Normal speech. Pt update on day of discharge Patient seen and examined. Patient states she feels well. Shortness of breath has improved. No complaints of chest pain today. Denies any nausea or vomiting. No fever or chills. Hospital Course Patient admitted with dyspnea and chest pain. History of recently diagnosed bilateral PE on Eliquis. Ruled out for ACS. Started on Cipro for enterococcus UTI. Seen in consultation by Dr. Bearden of hematology who recommended continuation of Eliquis indefinitely. Bilateral doppler ultrasound was ordered by hematology and was negative for DVT. Evaluated by PT who recommended home health PT. Patient with low blood pressures and occasional dizziness upon standing. Discussed with patient slow transitions. Orthostatic blood pressure measurements obtained this hospitalization were negative. Patient cleared for discharge from hematology standpoint with instructions to follow-up in his office in 3-4 weeks. Home oxygen walk test was performed due to patient's complaints of exertional shortness of breath but did not show a significant drop in O2 saturations with exertion. Patient improved clinically and was discharged to home in satisfactory condition. She was advised to continue Eliquis dose at 10 mg twice a day for another 3 days then 5mg BID. Pt Condition on Discharge: Stable Discharge Disposition: Disch w/ Home Health Serv Discharge Time: > 30 minutes Discharge Instructions DIET: Follow Instructions for: Heart Healthy Diet Activities you can perform: Regular-No Restrictions Follow up Referrals: Oncology/Hematology - 3 Weeks with Juanpablo Bearden MD PCP Follow-up - 2-3 Days New Medications: Ciprofloxacin (Cipro) 250 Mg Tab 250 MG PO Q12HR for UTI, #6 TAB Continued Medications: Acetaminophen (Tylenol) 325 Mg Tab 650 MG PO Q6H PRN for pain, #90 TAB 0 Refills Apixaban (Eliquis) 5 Mg Tab 10 MG PO BID for Blood Clot Prevention, #14 TAB 0 Refills Apixaban (Eliquis) 5 Mg Tab 5 MG PO BID for Blood Clot Prevention, #60 TAB 0 Refills (This prescription has been renewed) Cholecalciferol (D3 Maximum Strength) 5,000 Unit Cap 5000 UNITS PO DAILY for Nutritional Supplement, #90 CAP 3 Refills Dorzolamide Opth Drops (Dorzolamide Opth Drops) 2% Soln 1 DROP EACH EYE DAILY for Glaucoma, #1 BOTTLE 0 Refills Fluticasone Nasal [place] (Fluticasone Nasal [place]) 50 Mcg/Act Naspr 100 MCG EACH NARE BID for Allergy Management, #1 BOTTLE 3 Refills 50 mcg/spray Fluvastatin (Fluvastatin) 20 Mg Cap 20 MG PO HS for Cholesterol Management, #90 CAP 0 Refills Furosemide (Lasix) 20 Mg Tab 20 MG PO DAILY PRN for swelling, #30 TAB 6 Refills Hydrocodone-Acetaminophen (Hydrocodone-Acetaminophen) 5-325 mg Tab 1 TAB PO BID PRN for PAIN, TAB 0 Refills Sennosides (Senna-Tabs) 8.6 Mg Tab 8.6 MG PO DAILY for Constipation, #30 TAB 0 Refills Lauren Howard May 16, 2017 10:26
[2017-05-16 12:25] VITALS: BP 111/66; PULSE 62; RESP 16; TEMP 97.7; O2SAT 99
--- NOTE | 2017-05-16 12:56 | PD.ONC.PN ---
Subjective Subjective Remarks Afebrile Pt reports she took 2 laps around the nurse's station this morning States her shortness of breath is improved No bleeding Objective Data Date Time Temp Pulse Resp B/P (MAP) Pulse Ox O2 Delivery O2 Flow Rate FiO2 05/16/17 08:45 97.9 75 18 130/67 (88) 100 05/16/17 03:34 98.2 74 16 125/66 (85) 98 05/15/17 23:56 98.5 75 14 109/67 (81) 98 110/65 (80) 110/72 (85) 05/15/17 22:27 18 05/15/17 20:12 98.4 73 16 109/64 (79) 98 05/15/17 16:51 98.1 77 19 102/65 (77) 100 109/72 (84) 103/74 (84) 05/15/17 16:25 85 05/15/17 12:50 83 05/16/17 05/16/17 05/16/17 07:00 15:00 23:00 Intake Total 200 ml Balance 200 ml Result Diagram: 05/15/1761405/15/1715 Administered Medications Medications (Trade) Dose Ordered Sig/Irma Route PRN Reason Start Time Stop Time Status Last Admin Dose Admin Sodium Chloride (NS Flush) 2 ml BID IV FLUSH 05/14/17 21:00 05/16/17 09:24 Acetaminophen (Tylenol) 650 mg Q4H PRN PO pain < 5 05/14/17 20:15 05/15/17 21:41 Apixaban (Eliquis) 10 mg BID PO 05/14/17 21:00 05/16/17 09:24 Dorzolamide HCl (Trusopt 2% Opth Soln) 1 drop DAILY EACH EYE 05/15/17 09:00 05/16/17 09:23 Pravastatin Sodium (Pravachol) 20 mg HS PO 05/14/17 21:00 05/15/17 21:39 Ciprofloxacin (Cipro) 250 mg Q12HR PO 05/14/17 21:00 05/16/17 09:24 Cholecalciferol (Vitamin D3) 5,000 units DAILY PO 05/16/17 09:00 05/16/17 09:23 Sennosides (Senokot) 8.6 mg DAILY PO 05/16/17 09:00 05/16/17 09:24 Objective Remarks GENERAL: Older female resting in bed in no obvious distress SKIN: Warm and dry. HEAD: Normocephalic. EYES: No injection or drainage. NECK: Supple, trachea midline. CARDIOVASCULAR: Regular rate and rhythm without murmurs. RESPIRATORY: Clear anteriorly. Breathing unlabored at rest. GASTROINTESTINAL: Abdomen soft, non-tender, nondistended. EXTREMITIES: No cyanosis, or edema. MUSCULOSKELETAL: Adequate muscle tone. NEUROLOGICAL: Awake and alert. Oriented 3. Assessment/Plan Problem List: (1) Pulmonary embolism ICD Codes: I26.99 - Other pulmonary embolism without acute cor pulmonale Status: Chronic Plan: -- Original diagnosis of pulmonary embolism was 05/13/15. -- CT angiogram showed bilateral large pulmonary emboli with lower lobe predominant -- She is at high risk for future thrombi due to immobility Assessment Patient with a history of pulmonary embolism who presents to the emergency department with increasing shortness of breath and dizziness. Plan 1. Recommend lifelong anticoagulation due to high risk of future thromboses. 2. Monitor for bleeding while on Eliquis 3. Patient to see Dr. Bearden in 4 weeks as outpatient 4. Clear for discharge from hematology standpoint Attending Statement The exam, history, and the medical decision-making described in the above note were completed with the assistance of the mid-level provider. I reviewed and agree with the findings presented. I attest that I had a [id number] encounter with the patient on the same day, and personally performed and documented my assessment and findings in the medical record Problem Qualifiers (1) Pulmonary embolism: Viridiana Watson May 16, 2017 12:56 Juanpablo Bearden MD May 16, 2017 22:58
== END 2017-05-16 18:40 | disposition home or self-care (01) ==
LOC: NEPE 16:01 → NEDA 18:58 → OBSVTOIN 20:51 → INTOOBSV 20:51 → NEPHCDU 21:53
PROVIDERS: ADMIT Internal Medicine; ATTEND Internal Medicine
DX: N30.00 Acute cystitis without hematuria (principal); B95.2 Enterococcus as the cause of diseases classified elsewhere; R07.89 Other chest pain; R60.0 Localized edema; I95.9 Hypotension, unspecified; R26.81 Unsteadiness on feet; R26.89 Other abnormalities of gait and mobility; R06.00 Dyspnea, unspecified; I26.99 Other pulmonary embolism without acute cor pulmonale; I10 Essential (primary) hypertension; E78.00 Pure hypercholesterolemia, unspecified; E87.6 Hypokalemia; M53.1 Cervicobrachial syndrome; M54.9 Dorsalgia, unspecified; R42 Dizziness and giddiness; G89.29 Other chronic pain; M54.81 Occipital neuralgia; R00.1 Bradycardia, unspecified; M17.0 Bilateral primary osteoarthritis of knee; M79.7 Fibromyalgia; E55.9 Vitamin D deficiency, unspecified; Z79.01 Long term (current) use of anticoagulants; Z87.891 Personal history of nicotine dependence; Z86.12 Personal history of poliomyelitis
CPT/HCPCS: 71045; 80048; 80053; 82306; 82550; 83735; 83880; 84100; 84443; 84484; 85025; 93005; 93970; 94150; 94618; 97162; 99285; G0378; G8987; G8988

== ENCOUNTER 2018-03-05 18:06 | Observation (INO) ==
[2018-03-05 19:32] LABS: Baso % (Auto) 0.6 % (0.0-2.0); Eos # (Auto) 0.1 th/mm3 (0.0-0.4); Eos % (Auto) 1.2 % (0.0-4.0); Hematocrit 35.5 % (35.0-46.0); Hemoglobin 11.4 gm/dL (11.6-15.3); Lymph # (Auto) 2.1 th/mm3 (1.0-4.8); Lymph % (Auto) 33.9 % (9.0-44.0); Mean Corpuscular HGB Conc 32.3 % (32.0-36.0); Mean Corpuscular Hemoglobin 30.1 pg (27.0-34.0); Mean Corpuscular Volume 93.2 fL (80.0-100.0); Mean Platelet Volume 7.9 fL (7.0-11.0); Mono # (Auto) 0.5 th/mm3 (0.0-0.9); Mono % (Auto) 7.5 % (0.0-8.0); Neut # (Auto) 3.6 th/mm3 (1.8-7.7); Neut % (Auto) 56.8 % (16.0-70.0); Platelet Count 222 th/mm3 (150-450); Red Cell Distribution Width 13.3 % (11.6-17.2); White Blood Count 6.3 th/mm3 (4.0-11.0)
--- NOTE | 2018-03-05 19:36 | XR ---
EXAM DATE: 03/05/2018 7:34 PM EST AGE/SEX: 62 years / Female INDICATIONS: Chest pain and generalized weakness. CLINICAL DATA: This is the patient's initial encounter. Patient reports that signs and symptoms have been present for 1 day and indicates a pain score of 10/10. MEDICAL/SURGICAL HISTORY: . History of blood clots. None. COMPARISON: [facility], CHEST 1V SINGLE AP, 12/31/2017. . FINDINGS: A single AP view of the chest demonstrates the lungs to be symmetrically aerated without evidence of mass, infiltrate or effusion. The cardiomediastinal contours are unremarkable. Osseous structures a re intact. CONCLUSION: No evidence of acute cardiopulmonary disease. Electronically signed by: Ruben Schultz MD 03/05/2018 7:34 PM EST
[2018-03-05 19:39] LABS: Chloride 105 meq/L (98-107); Potassium 3.9 meq/L (3.5-5.1); Sodium 140 meq/L (136-145)
[2018-03-05 19:42] LABS: Albumin 3.5 g/dL (3.4-5.0); Anion Gap 7 meq/L (5-15); Calcium 8.5 mg/dL (8.5-10.1); Carbon Dioxide 28.3 meq/L (21.0-32.0)
--- NOTE | 2018-03-05 19:42 | ED ---
HPI General Chief Complaint: Weakness Stated Complaint: Weakness Time Seen by Provider: 03/05/18 19:10 History of Present Illness HPI narrative: 62-year-old female with a past medical history of pulmonary embolism and hypertension presents to the emergency room complaining of occasional chest pain, palpitations, dyspnea on exertion, lower extremity swelling, dizziness and a headache. Patient had symptoms for the last 2 days on and off. Symptoms are mild to moderate in intensity. Patient is currently only on aspirin as she was taken off blood thinners due to fall risk. Chest pain is midsternal radiating to the left shoulder into the back with associated dizziness and nausea. Patient denies any cough, fever, chills, abdominal pain, focal deficits. Related Data Home Medications Medication Instructions Recorded Confirmed furosemide [Lasix] 20 mg PO DAILY 11/12/17 03/05/18 sennosides [senna] 8.8 mg PO DAILY 11/12/17 03/05/18 aspirin 81 mg PO DAILY 03/05/18 03/05/18 jdfykrtkms-qpbwirqbhlojg-stze 1 cap PO Q4H PRN 03/05/18 03/05/18 [Fioricet] dorzolamide 1 drp OPHTHALMIC (EYE) DAILY 03/05/18 03/05/18 ezetimibe 10 mg PO DAILY 03/05/18 03/05/18 teriparatide [Forteo] 20 mcg SUBCUT DAILY 03/05/18 03/05/18 vitamin E 500 unit PO DAILY 03/05/18 03/05/18 Previous Rx's Medication Instructions Recorded albuterol sulfate [Ventolin HFA] 1 inh INHALATION QID PRN #18 g 12/31/17 Allergies Allergy/AdvReac Type Severity Reaction Status Date / Time No Known Allergies Allergy Verified 03/05/18 18:20 Review of Systems Constitutional Denies fever(s) Eyes Denies change in vision ENT Denies headache(s) and Denies nasal congestion Cardiovascular Reports chest pain, Reports rapid heart rate, Reports palpitations and Reports dyspnea on exertion Respiratory Denies dyspnea Gastrointestinal Denies abdominal pain Genitourinary Denies difficulty voiding Musculoskeletal Denies myalgias Integumentary/Breasts Denies rash Neurologic Reports dizziness and Reports headache(s) Psychiatric Denies depression Endocrine Denies polyuria Hematologic/Lymphatic Denies easy bruising [facility] Medical History Medical History Migraine (Acute) Blood clotting disorder (Acute) H/O: hysterectomy (Acute) High cholesterol (Acute) Hypertension (Acute) Neuropathy (Acute) Polio (Acute) Pulmonary emboli (Acute) Social History Social History Substance History: No History of Abuse Second Hand Smoke Exposure: No Smoking Status: Former smoker Tobacco Type: Cigarettes How Often Do You Have a Drink Containing Alcohol: Never Recent Travel in [facility] within the Last 8 Weeks: No Recent Out of Country Travel within the Last 8 Weeks: No Immunization History Tetanus Immunization: <5 Years Exam Narrative Exam Narrative: GENERAL: Patient is alert and oriented -3 SKIN: Focused skin assessment warm/dry. HEAD: Atraumatic. Normocephalic. EYES: Pupils equal and round. No scleral icterus. No injection or drainage. ENT: No nasal bleeding or discharge. Mucous membranes pink and moist. NECK: Trachea midline. No JVD. CARDIOVASCULAR: Regular rate and rhythm. No murmur appreciated. RESPIRATORY: No accessory muscle use. Clear to auscultation. Breath sounds equal bilaterally. GASTROINTESTINAL: Abdomen soft, non-tender, nondistended. Hepatic and splenic margins not palpable. MUSCULOSKELETAL: No obvious deformities. No clubbing. No cyanosis. No edema. NEUROLOGICAL: Awake and alert. No obvious cranial nerve deficits. Motor grossly within normal limits. Normal speech. PSYCHIATRIC: Appropriate mood and affect; insight and judgment normal. Course Initial Documented Vital Signs Temperature 98.3 F 03/05/18 18:15 Pulse Rate 65 03/05/18 18:15 Respiratory Rate 18 03/05/18 18:15 Blood Pressure 144/75 H 03/05/18 18:15 Pulse Oximetry 100 03/05/18 18:15 Last Documented Vital Signs Temperature 97.8 F 03/06/18 03:49 Pulse Rate 84 03/06/18 04:00 Respiratory Rate 19 03/06/18 03:49 Blood Pressure 106/62 03/06/18 03:49 Pulse Oximetry 100 03/06/18 03:49 Medical Decision Making MDM Narrative Medical Screen Exam Complete: Yes Emergency Medical Condition: Yes Lab Data Result diagrams: 03/05/18 19:20 03/05/18 19:20 Lab Results 03/05/18 03/05/18 03/05/18 Range/Units 19:20 19:20 19:55 CBC w Diff Auto diff final WBC 6.3 (4.0-11.0) th/mm3 RBC 3.80 L (4.00-5.30) mil/mm3 Hgb 11.4 L (11.6-15.3) gm/dL Hct 35.5 (35.0-46.0) % MCV 93.2 (80.0-100.0) fL MCH 30.1 (27.0-34.0) pg MCHC 32.3 (32.0-36.0) % RDW 13.3 (11.6-17.2) % Plt Count 222 (150-450) th/mm3 MPV 7.9 (7.0-11.0) fL Neut % (Auto) 56.8 (16.0-70.0) % Lymph % (Auto) 33.9 (9.0-44.0) % [place] % (Auto) 7.5 (0.0-8.0) % Eos % (Auto) 1.2 (0.0-4.0) % Baso % (Auto) 0.6 (0.0-2.0) % Neut # (Auto) 3.6 (1.8-7.7) th/mm3 Lymph # (Auto) 2.1 (1.0-4.8) th/mm3 [place] # (Auto) 0.5 (0.0-0.9) th/mm3 Eos # (Auto) 0.1 (0.0-0.4) th/mm3 Baso # (Auto) 0.0 (0.0-0.2) th/mm3 WBC Differential . Differential Comment . D-Dimer Quant (PE/DVT) 4.78 H (0.00-0.50) mg/L FEU Sodium 140 (136-145) meq/L Potassium 3.9 (3.5-5.1) meq/L Chloride 105 (98-107) meq/L Carbon Dioxide 28.3 (21.0-32.0) meq/L Anion Gap 7 (5-15) meq/L BUN 16 (7-18) mg/dL Creatinine 0.76 (0.50-1.00) mg/dL Estimated GFR Greater than 89 (>89) mL/min Random Glucose 97 (74-106) mg/dL Calcium 8.5 (8.5-10.1) mg/dL Total Bilirubin 0.2 (0.2-1.0) mg/dL AST 26 (15-37) U/L ALT 32 (10-53) U/L Alkaline Phosphatase 61 (45-117) U/L Troponin I Less than 0.02 L (0.02-0.05) ng/mL Total Protein 6.6 (6.4-8.2) g/dL Albumin 3.5 (3.4-5.0) g/dL Imaging Data Radiologist's impression: Chest X-Ray 03/05/18 19:12 CONCLUSION: No evidence of acute cardiopulmonary disease. Head CT 03/05/18 20:19 CONCLUSION: 1. Mild cerebral atrophy with suspected right thalamic lacunar infarct, new since remote 2014 exam. 2. No acute intracranial abnormality. . Chest CTA 03/05/18 20:47 CONCLUSION: Small right lower lobe pulmonary emboli. Clear lungs. Discharge Plan Discharge Disposition Patient Disposition: ED Admit(ED Internal Use Only) Discharge Condition Condition: Fair Discharge Order Discharge Orders: ED Use Only Admit Order (Routine); Ordered 03/06/18 Ordered By: Steven Rodriguez Discharge Details Discharge Comment: Case has been discussed with the admitting physician Diagnosis: Pulmonary emboli, Chest pain Physicians Team ED Provider: Steven Rodriguez Primary Care Provider: Trip Iyer Attending Provider: Shena Calvo Status ED Status: Left Department Discharge Information Discharge Date/Time: 03/06/18 01:45
[2018-03-05 19:43] LABS: Blood Urea Nitrogen 16 mg/dL (7-18); Glucose,Random 97 mg/dL (74-106)
[2018-03-05 19:46] LABS: Alanine Aminotransferase 32 U/L (10-53); Aspartate Aminotransferase 26 U/L (15-37); Glomerular Filtration Rate Greater Than 89 mL/min (>89)
[2018-03-05 19:47] LABS: Total Protein 6.6 g/dL (6.4-8.2)
[2018-03-05 19:48] LABS: Alkaline Phosphatase 61 U/L (45-117)
--- NOTE | 2018-03-05 21:00 | CT ---
EXAM DATE: 03/05/2018 8:46 PM EST AGE/SEX: 62 years / Female INDICATIONS: Cephalgia. Dizziness. CLINICAL DATA: This is the patient's initial encounter. Patient reports that signs and symptoms have been present for 1 day and indicates a pain score of 0/10. MEDICAL/SURGICAL HISTORY: Hypertension. None. RADIATION DOSE: 48.68 CTDI (mGy) COMPARISON: [facility]LI, MR BRAIN W/O CONTRAST, 01/07/2015. . TECHNIQUE: CT of the head without contrast. Using automated exposure control and adjustment of the mA and/or kV according to patient size, radiation dose was kept as low as reasonably achievable to ob tain optimal diagnostic quality images. DICOM format image data is available electronically for revi ew and comparison. FINDINGS: Cerebrum: Mild diffuse cerebral atrophy. The ventricles are normal for degree of atrophy. Focal hypo density in the right inferior thalamus. No evidence of midline shift, mass lesion, hemorrhage or acut e infarction. No extraaxial fluid collections are seen. Posterior Fossa: The cerebellum and brainstem are intact. The 4th ventricle is midline. The cerebe llopontine angle is unremarkable. Extracranial: The visualized portion of the orbits is intact. Skull: The calvaria is intact. No evidence of skull fracture. CONCLUSION: 1. Mild cerebral atrophy with suspected right thalamic lacunar infarct, new since remote 2014 exam. 2. No acute intracranial abnormality. . Electronically signed by: Keivn Stark MD 03/05/2018 8:58 PM EST
--- NOTE | 2018-03-05 21:31 | ECG ---
Date Performed: 03/05/2018 Time Performed: 18:15:20 PTAGE: 62 years EKG: Sinus rhythm WITH SHORT HI INTERVAL BORDERLINE ECG Since the PREVIOUS TRACING , no significant change noted DOCTOR: Glenda Marte Interpretating Date/Time 03/05/2018 21:31:41
--- NOTE | 2018-03-05 22:10 | CT ---
EXAM DATE: 03/05/2018 9:59 PM EST AGE/SEX: 62 years / Female INDICATIONS: Chest pain. Shortness of breath. CLINICAL DATA: This is the patient's initial encounter. Patient reports that signs and symptoms have been present for 1 day and indicates a pain score of 5/10. MEDICAL/SURGICAL HISTORY: Hypertension. None. RADIATION DOSE: 5.98 CTDI (mGy) COMPARISON: POI, CTA PULMONARY ANGIOGRAM, 11/21/2017. . TECHNIQUE: Volumetric scanning was performed using a multi-row detector CT scanner during bolus infu liam of 75 ml Omnipaque 350 (iohexol) nonionic water-soluble contrast as a single exam dose. The jerome a was post processed with a variety of visualization algorithms including full volume maximum intensi ty projection and sliding thin slab reformation. Using automated exposure control and adjustment of the mA and/or kV according to patient size, radiation dose was kept as low as reasonably achievable t o obtain optimal diagnostic quality images. DICOM format image data is available electronically for review and comparison. FINDINGS: Small emboli are seen in the right lower lobe, series 2 images 62 through 67. Other pulmonary arterie s are clear. Normal heart size. No evidence of right ventricular strain. No infiltrate, effusion or pneumothorax. No lymphadenopathy. CONCLUSION: Small right lower lobe pulmonary emboli. Clear lungs. Electronically signed by: Ruben Schultz MD 03/05/2018 10:08 PM EST
[2018-03-05] MEDS ORDERED: Enoxaparin Inj 60 MG/0.6 ML Syringe SQ ONE (22:18)
[2018-03-05] MEDS ORDERED: Bisacodyl 10 MG Supp RECTAL PRN (23:10)
[2018-03-06] MEDS: Acetaminophen 325 MG Tablet PO PRN ×2 (00:46→09:36)
[2018-03-06 06:57] LABS: Baso % (Auto) 0.8 % (0.0-2.0); Eos # (Auto) 0.1 th/mm3 (0.0-0.4); Eos % (Auto) 1.1 % (0.0-4.0); Hematocrit 35.2 % (35.0-46.0); Hemoglobin 11.4 gm/dL (11.6-15.3); Lymph # (Auto) 1.9 th/mm3 (1.0-4.8); Lymph % (Auto) 36.3 % (9.0-44.0); Mean Corpuscular HGB Conc 32.2 % (32.0-36.0); Mean Corpuscular Hemoglobin 30.4 pg (27.0-34.0); Mean Corpuscular Volume 94.4 fL (80.0-100.0); Mean Platelet Volume 8.4 fL (7.0-11.0); Mono # (Auto) 0.4 th/mm3 (0.0-0.9); Mono % (Auto) 6.9 % (0.0-8.0); Neut # (Auto) 2.9 th/mm3 (1.8-7.7); Neut % (Auto) 54.9 % (16.0-70.0); Platelet Count 234 th/mm3 (150-450); Red Blood Count 3.73 mil/mm3 (4.00-5.30); Red Cell Distribution Width 13.8 % (11.6-17.2); White Blood Count 5.3 th/mm3 (4.0-11.0)
[2018-03-06 07:34] LABS: Chloride 105 meq/L (98-107); Potassium 3.9 meq/L (3.5-5.1); Sodium 140 meq/L (136-145)
[2018-03-06 07:37] LABS: Anion Gap 6 meq/L (5-15); Blood Urea Nitrogen 16 mg/dL (7-18); Calcium 8.7 mg/dL (8.5-10.1); Carbon Dioxide 28.6 meq/L (21.0-32.0); Glucose,Random 84 mg/dL (74-106)
[2018-03-06 07:41] LABS: Glomerular Filtration Rate Greater Than 89 mL/min (>89)
[2018-03-06 08:08] LABS: Creatine Kinase 61 U/L (26-192)
[2018-03-06] MEDS ORDERED: Enoxaparin Inj 60 MG/0.6 ML Syringe SQ SCH (09:00)
[2018-03-06] MEDS ORDERED: Senna/Docusate Sodium 8.6/50 MG Tablet PO SCH (09:00)
[2018-03-06] MEDS ORDERED: Butalbital/APAP/Caff 50/325/40 MG Tablet PO PRN (10:03)
--- NOTE | 2018-03-06 10:03 | P.HP ---
History of Present Illness Primary Care Physician: Trip Iyer MD Chief Complaint: Shortness of breath, heart racing History of Present Illness: 62-year-old female with known history of hypertension, hyperlipidemia, pulmonary emboli, osteoporosis, chronic cephalgia, chronic back pain who presented to the hospital because of shortness of breath and chest discomfort. Patient states that she has been receiving injections for her osteoporosis and every time she gets those she gets episodes of her heart racing and shortness of breath. She just got an injection 2 days ago when yesterday she significant shortness of breath with feeling her heart racing. Patient was brought to the hospital for evaluation. Patient vital signs are stable. No signs of tachycardia, blood pressure issues. Patient had workup done and found to have a small pulmonary emboli in the right lower lung. Patient does have a rather complex history of pulmonary emboli in which she had a fairly extensive bilateral pulmonary emboli and she was on Eliquis. Patient was followed by [employer] Dr. Bearden and she indicates that she was taking Eliquis a few months ago. Patient states that she intimately takes herself off medications in order to receive injections. Patient indicates that someone in the past she had a cardiology consultation was told that she had atrial fibrillation, however complete review of her records in the hospital do not indicate any documentation confirming H fibrillation or cardiology evaluation. Patient is currently sitting in bed quite comfortably. She does not have any significant appearance of shortness of breath or dyspnea. She does have reproducible palpable chest wall tenderness. - Diagnosis (1) Pulmonary emboli (2) Chest pain Review of Systems All other systems reviewed negative except as stated in HPI Cardiovascular: Reports chest pain, Reports rapid, pounding, or irregular heartbeat PMFSH - History History Provided By: Patient - Medical History Medical History: Medical History (Last Updated 03/06/18 @ 09:40 by VICTOR HUGO Parnell) Migraine Osteoporosis Blood clotting disorder High cholesterol Hypertension Neuropathy Polio Pulmonary emboli - Surgical History Surgical History: Surgical History (Last Updated 03/06/18 @ 09:41 by VICTOR HUGO Parnell) History of cataract surgery H/O: hysterectomy - Family History Family History: Family History (Last Updated 03/06/18 @ 09:49 by VICTOR HUGO Parnell) Mother Family history of kidney disease Family history of diabetes mellitus Family history of heart disease - Tobacco History Second Hand Smoke Exposure: No Tobacco Use In Past 30 Days: No Smoking Status: Former smoker Tobacco Type: Cigarettes - Alcohol History How Often Do You Have a Drink Containing Alcohol: Never - Substance Use History Substance History: No History of Abuse - Travel History Recent Travel in the [place] Within the Last 8 Weeks: No Recent Travel Out of the Country Within the Last 8 Weeks: No - Immunization History Tetanus Immunization: <5 Years Hx Influenza Vaccine This Season: No Medications and Allergies Active Medications: Active Medications Acetaminophen (Tylenol) 650 mg PO Q4H PRN PRN Reason: Temp > 100.4 Last Admin: 03/06/18 09:36 Dose: 650 mg Al Hydroxide/Mg Hydroxide (Milk Of Magnesia Liq) 30 ml PO Q12H PRN PRN Reason: Mild Constipation Apixaban (Eliquis) 10 mg PO BID ABDI Bisacodyl (Dulcolax Supp) 10 mg RECTAL DAILY PRN PRN Reason: SEVERE CONSITIPATION Lactulose (Lactulose Liq) 30 ml PO DAILY PRN PRN Reason: SEVERE CONSITIPATION Ondansetron HCl (Zofran Inj) 4 mg IV.PUSH Q6H PRN PRN Reason: NAUSEA OR VOMITING Senna/Docusate Sodium (Cynthia-Colace) 1 tab PO BID [facility] Last Admin: 03/06/18 09:36 Dose: 1 tab Sennosides (Senokot) 17.2 mg PO Q12H PRN PRN Reason: Moderate Constipation Sodium Chloride (Ns Flush) 2 ml IV.FLUSH BID [facility] Last Admin: 03/06/18 09:36 Dose: 2 ml Sodium Chloride (Ns Flush) 2 ml IV.FLUSH PRN PRN PRN Reason: FLUSH AFTER USING IV ACCESS Allergies Allergy/AdvReac Type Severity Reaction Status Date / Time No Known Allergies Allergy Verified 03/05/18 18:20 Home Medications Medication Instructions Recorded Confirmed Type furosemide [Lasix] 20 mg PO DAILY 11/12/17 03/05/18 History sennosides [senna] 8.8 mg PO DAILY 11/12/17 03/05/18 History aspirin 81 mg PO DAILY 03/05/18 03/05/18 History jkfqemsuln-orwjtggivjliy-kcok 1 cap PO Q4H PRN 03/05/18 03/05/18 History [Fioricet] dorzolamide 1 drp OPHTHALMIC (EYE) DAILY 03/05/18 03/05/18 History ezetimibe 10 mg PO DAILY 03/05/18 03/05/18 History teriparatide [Forteo] 20 mcg SUBCUT DAILY 03/05/18 03/05/18 History vitamin E 500 unit PO DAILY 03/05/18 03/05/18 History Exam Vital signs: Vital Signs 03/05/18 18:15 03/05/18 19:43 03/05/18 20:00 Temperature 98.3 F Pulse Rate 65 65 90 Respiratory Rate 18 18 Blood Pressure 144/75 H 143/75 H Pulse Oximetry 100 100 100 03/05/18 22:33 03/06/18 00:00 03/06/18 01:00 Temperature 98.1 F Pulse Rate 64 77 68 Respiratory Rate 18 18 Blood Pressure 132/78 117/62 Pulse Oximetry 100 100 03/06/18 02:08 03/06/18 03:49 03/06/18 04:00 Temperature 96.5 F L 97.8 F Pulse Rate 75 63 84 Respiratory Rate 20 19 Blood Pressure 115/82 106/62 Pulse Oximetry 100 100 03/06/18 08:00 Temperature 96.9 F L Pulse Rate 90 Respiratory Rate 20 Blood Pressure 144/63 H Pulse Oximetry 100 Intake & Output 03/05/18 03/06/18 03/06/18 18:59 06:59 18:59 Weight 54.3 kg 60.7 kg Other: # Voids 2 Weight On Admission 60.8 kg Narrative: GENERAL: Well-developed, cachectic, in no acute distress. alert and orientated HEENT: Head is normocephalic without any lesions or masses noted. Facial features are symmetric. Eyes: Pupils equal round reactive to light. Extraocular muscles are intact. Conjunctivae were clear. Oropharyngeal: Pharynx without any erythema edema. Tongue is midline without deviation. Buccal mucosa is moist without any masses or lesions NECK: Supple without any masses. Trachea midline no deviation. No JVD, no bruits are appreciated CARDIAC: Regular rhythm, regular rate. S1/S2 are heard. No murmurs gallops or rubs. Reproducible chest wall tenderness LUNGS: Clear to auscultation bilaterally. No wheeze, rhonchi or rales. No use of accessory muscles on inspiration or expiration. ABDOMEN: Soft, nontender. Nondistended. Bowel sounds heard in all 4 quadrants. No organomegaly or masses. Negative rebound, negative guarding EXTREMITIES: No edema, pulses are equal bilaterally. No cyanosis or clubbing NEUROLOGY: Mood and affect appear appropriate. Cranial nerves II through XII grossly intact. Muscle strength 5/5 in upper and lower extremities bilaterally. Deep tendon reflexes are 2+ in upper and lower extremities bilaterally. Results - Labs CBC & Chem 7: 03/06/18 05:15 03/06/18 05:15 Labs: Laboratory Results - last 24 hr 03/05/18 03/05/18 03/05/18 19:20 19:20 19:55 CBC w Diff Auto diff final WBC 6.3 RBC 3.80 L Hgb 11.4 L Hct 35.5 MCV 93.2 MCH 30.1 MCHC 32.3 RDW 13.3 Plt Count 222 MPV 7.9 Neut % (Auto) 56.8 Lymph % (Auto) 33.9 [place] % (Auto) 7.5 Eos % (Auto) 1.2 Baso % (Auto) 0.6 Neut # (Auto) 3.6 Lymph # (Auto) 2.1 [place] # (Auto) 0.5 Eos # (Auto) 0.1 Baso # (Auto) 0.0 WBC Differential . Differential Comment . D-Dimer Quant (PE/DVT) 4.78 H Sodium 140 Potassium 3.9 Chloride 105 Carbon Dioxide 28.3 Anion Gap 7 BUN 16 Creatinine 0.76 Estimated GFR Greater than 89 Random Glucose 97 Calcium 8.5 Total Bilirubin 0.2 AST 26 ALT 32 Alkaline Phosphatase 61 Total Creatine Kinase Troponin I Less than 0.02 L Total Protein 6.6 Albumin 3.5 03/06/18 03/06/18 03/06/18 05:15 05:15 05:15 CBC w Diff Auto diff final WBC 5.3 RBC 3.73 L Hgb 11.4 L Hct 35.2 MCV 94.4 MCH 30.4 MCHC 32.2 RDW 13.8 Plt Count 234 MPV 8.4 Neut % (Auto) 54.9 Lymph % (Auto) 36.3 [place] % (Auto) 6.9 Eos % (Auto) 1.1 Baso % (Auto) 0.8 Neut # (Auto) 2.9 Lymph # (Auto) 1.9 [place] # (Auto) 0.4 Eos # (Auto) 0.1 Baso # (Auto) 0.0 WBC Differential . Differential Comment . D-Dimer Quant (PE/DVT) Sodium 140 Potassium 3.9 Chloride 105 Carbon Dioxide 28.6 Anion Gap 6 BUN 16 Creatinine 0.63 Estimated GFR Greater than 89 Random Glucose 84 Calcium 8.7 Total Bilirubin AST ALT Alkaline Phosphatase Total Creatine Kinase 61 Troponin I Less than 0.02 L Total Protein Albumin - Imaging Impressions Chest X-Ray 03/05/18 19:12 CONCLUSION: No evidence of acute cardiopulmonary disease. Head CT 03/05/18 20:19 CONCLUSION: 1. Mild cerebral atrophy with suspected right thalamic lacunar infarct, new since remote 2014 exam. 2. No acute intracranial abnormality. . Chest CTA 03/05/18 20:47 CONCLUSION: Small right lower lobe pulmonary emboli. Clear lungs. Caprini VTE Risk Assessment Caprini VTE Risk Assessment: Moderate/High Risk (score >= 2) Caprini Risk Assessment Model: Point Value = 1 Point Value = 2 Point Value = 3 Point Value = 5 Age 41-60 Minor surgery BMI > 25 kg/m2 Swollen legs Varicose veins or History of unexplained or recurrent spontaneous Oral contraceptives or hormone replacement Sepsis (< 1 month) Serious lung disease, including pneumonia (< 1 month) Abnormal pulmonary function Acute myocardial infarction Congestive heart failure (< 1 month) History of inflammatory bowel disease Medical patient at bed rest Age 61-74 Arthroscopic surgery Major open surgery (> 45 min) Laparoscopic surgery (> 45 min) Malignancy Confined to bed (> 72 hours) Immobilizing plaster cast Central venous access Age >= 75 History of VTE Family history of VTE Factor V Leiden Prothrombin [id number] Lupus anticoagulant Anticardiolipin antibodies Elevated serum homocysteine Heparin-induced thrombocytopenia Other congenital or acquired thrombophilia Stroke (< 1 month) Elective arthroplasty Hip, pelvis, or leg fracture Acute spinal cord injury (< 1 month) Prophylaxis Regimen: Total Risk Factor Score Risk Level Prophylaxis Regimen 0-1 Low Early ambulation 2 Moderate Order ONE of the following: *Sequential Compression Device (SCD) *Heparin 5000 units SQ BID 3-4 Higher Order ONE of the following medications: *Heparin 5000 units SQ TID *Enoxaparin/Lovenox 40 mg SQ daily (WT < 150 kg, CrCl > 30 mL/min) *Enoxaparin/Lovenox 30 mg SQ daily (WT < 150 kg, CrCl > 10-29 mL/min) *Enoxaparin/Lovenox 30 mg SQ BID (WT < 150 kg, CrCl > 30 mL/min) AND/OR *Sequential Compression Device (SCD) 5 or more Highest Order ONE of the following medications: *Heparin 5000 units SQ TID (Preferred with Epidurals) *Enoxaparin/Lovenox 40 mg SQ daily (WT < 150 kg, CrCl > 30 mL/min) *Enoxaparin/Lovenox 30 mg SQ daily (WT < 150 kg, CrCl > 10-29 mL/min) *Enoxaparin/Lovenox 30 mg SQ BID (WT < 150 kg, CrCl > 30 mL/min) AND *Sequential Compression Device (SCD) Assessment and Plan - Assessment (1) Pulmonary emboli Code(s): I26.99 - Other pulmonary embolism without acute cor pulmonale Status : Acute (2) Chest pain Code(s): R07.9 - Chest pain, unspecified Status: Acute - Plan Pulmonary emboli, recurrent -Patient was initially evaluated in our department started on therapeutic Lovenox -Discussed with patient's [employer] Dr. Bearden, who indicated that the patient should be restarted back on Eliquis 10 mg twice daily for the first week and then 5 mg twice daily. He indicated the patient can be discharged once anticoagulation is initiated. Recommending follow-up in the outpatient setting. -We will start Eliquis 10 mg twice daily Chest pain -Clinical evaluation of the patient elicits reproducible palpable chest wall tenderness indicating muscle skeletal nature -Patient has been ruled out for acute coronary event with serial cardiac enzymes are negative -Serial EKGs reviewed by myself and indicated normal sinus rhythm without any changes -Tylenol has resolved her chest wall tenderness Hypertension, hyperlipidemia -Home medications continued DVT prevention -Patient on subcutaneous Lovenox and will start Eliquis p.o. Discharge Planning: Discharge home in stable condition Activity: Ad paty. Diet: Healthy heart diet Medication per medication reconciliation Follow-up with primary medical doctor in 1 week
[2018-03-06] MEDS ORDERED: Ezetimibe 10 MG Tablet PO SCH (10:15)
[2018-03-06] MEDS: Furosemide 40 MG Tablet PO SCH (11:08)
--- NOTE | 2018-03-06 16:53 | ECG ---
Date Performed: 03/06/2018 Time Performed: 07:21:42 PTAGE: 62 years EKG: Sinus rhythm NORMAL ECG PREVIOUS TRACING : 03/05/2018 18.15 Since the previous tracing, no significant change noted DOCTOR: Glenda Marte Interpretating Date/Time 03/06/2018 16:52:58
== END 2018-03-06 11:45 | disposition home or self-care (01) ==
LOC: PHED 18:06 → PHEDA 18:06 → PH3 03-06 01:45
PROVIDERS: ADMIT Internal Medicine; ATTEND Internal Medicine